=== PATIENT | female | born 1950 | race Caucasian/White ===

== ENCOUNTER 2021-01-05 23:34 | Inpatient (IN) | payer OTHER, MEDICAID, SELFPAY ==
[~2021-01-05] VITALS: Ht 152.4 cm; Wt 59.4 kg
[~2021-01-05 23:34] MED LIST: ACET-73 PO; CYCL10TA9 PO; DOCU-156 PO; HYDR-3927 PO; NAPR-690 PO; PANT40TA45 PO; POTA-88 PO; SER25 PO
--- NOTE | 2021-01-05 23:38 | NUR ---
PT BIB BLS AMBULANCE FOR BLEEDING IN COLOSTOMY BAG. PT WAS SEEN BY NURSES AT 1900 AND THEY NOTICED SHE HAD BLOOD IN HER BAG. PT ALSO HAS DISTENTION TO LEFT SIDE OF HER ABDOMEN WHERE THE BAG IS. 08/25 PAIN. A&OX2. -SOB, -CP
--- NOTE | 2021-01-05 23:40 | NUR ---
Tanmay pugh in ED - 01/06/21 at 0010 by SDEDGS CAROLYNN WILSON at bedside examining patient.
[2021-01-05 23:44] VITALS: BP_SYST 113
--- NOTE | 2021-01-06 00:10 | NUR ---
# 20 gauge angiocath placed to RAC. Use of asceptic technique. Opsite placed over site. Blood return noted. Blood for lab drawn from site. Flushed with 10 cc of normal saline. No evidence of infiltration noted. Patient tolerated well.
--- NOTE | 2021-01-06 00:46 | NUR ---
ER Dr. WILSON at bedside examining patient.
[2021-01-06] MEDS ORDERED: NACL 0.9% 1,000 ML IV ONE (01:00)
[2021-01-06 01:01] LABS: EOSINOPHILS # (AUTO) 0.2 K/uL (0.0-0.4); EOSINOPHILS % (AUTO) 4.9 % (0.0-4.0); HEMATOCRIT 22.9 % (36-48); HEMOGLOBIN 7.1 g/dL (12.0-16.0); LYMPHOCYTES # (AUTO) 1.7 K/uL (1.0-5.5); LYMPHOCYTES % (AUTO) 35.4 % (20.5-51.5); MEAN CORPUSCULAR HEMOGLOBIN 23 pg (27-31); MEAN CORPUSCULAR HGB CONC 31 % (32-36); MEAN CORPUSCULAR VOLUME 75 fL (79.0-98.0); MONOCYTES # (AUTO) 0.7 K/uL (0.0-1.0); MONOCYTES % (AUTO) 14.9 % (1.7-9.3); NEUTROPHILS # (AUTO) 2.1 K/uL (1.8-7.7); NEUTROPHILS % (AUTO) 43.8 % (40.0-70.0); PLATELET COUNT (AUTO) 174 K/uL (130-430); RED BLOOD CELL COUNT(AUTO) 3.04 MIL/uL (4.2-6.2); RED CELL DISTRIBUTION WIDTH 20.7 % (9.0-15.0); WHITE BLOOD COUNT (AUTO) 4.7 K/uL (4.8-10.8)
--- NOTE | 2021-01-06 01:06 | NUR ---
PTs COLSOTOMY TUBE CHANGED. NEW ONE PLACED AFTER MEASURING AND CUTTING ONE
[2021-01-06 01:11] LABS: INR 0.9 (0.8-1.2); PROTHROMBIN TIME 9.6 SECS (9.5-12.5)
[2021-01-06 01:18] LABS: CALCIUM 8.4 mg/dL (8.4-11.0); CREATININE 0.83 mg/dL (0.55-1.30); POTASSIUM 3.9 mmol/L (3.5-5.1)
--- NOTE | 2021-01-06 01:19 | NUR ---
Patient transported to radiology via GURNEY, accompanied by CATINA.
[2021-01-06 01:24] LABS: ALBUMIN 3.1 g/dL (3.4-4.8); TOTAL BILIRUBIN 0.3 mg/dL (0.0-1.0)
--- NOTE | 2021-01-06 02:00 | NUR ---
PT SLEEPING IN BED NOW. PTs VSS
--- NOTE | 2021-01-06 02:46 | NUR ---
Medication reconciliation completed with information provided by FACILITY. Any prior medication reconciliation on file was reviewed and corrected.
--- NOTE | 2021-01-06 02:47 | NUR ---
PT BELONGINGS LIST COMPLETE
--- NOTE | 2021-01-06 02:47 | NUR ---
PT IS DNR
--- NOTE | 2021-01-06 03:55 | NUR ---
Patient will be admitted to care of [facility]. Admitted to TELE unit. Will go to room TBD. Belongings list completed. Complete and up to date summary report printed. SBAR report to be given at bedside with opportunity for questions.
--- NOTE | 2021-01-06 03:59 | NUR ---
[facility]. Licensed nurse present. IV present no signs or symptoms of infiltration.
--- NOTE | 2021-01-06 04:18 | NUR ---
ADMISSION NOTE Received patient from ER via ana lilia, received report from Ravinder STERN. Patient admitted with diagnosis of GI Bleed. Patient oriented to hospital routine, call light, toileting and safety-patient verbalized understanding.
[2021-01-06 04:43] VITALS: BP_SYST 130
--- NOTE | 2021-01-06 04:51 | NUR ---
special procedure technologist at bedside.
[2021-01-06] MEDS ORDERED: NACL 0.9% 1,000 ML IV SCH (05:00)
--- NOTE | 2021-01-06 05:50 | NUR ---
Closing notes Pt AAOx3, VSS, no s/s distress noted. LAYA colostomy bag noted with small bloody drainage and small formed stool. Bag was changed per ER nurse. IVF started at ordered rate RAC 20G good blood return. Pt assisted with the bedpan and pt voided good amout of urine. Bed low, locked, siderails upx 3, alarm on. Call light within reach. To endorse to AM nurse.
[2021-01-06 06:47] LABS: INR 0.9 (0.8-1.2); PROTHROMBIN TIME 9.7 SECS (9.5-12.5)
[2021-01-06 06:56] LABS: BASOPHILS % (AUTO) 1.2 % (0.0-2.0); EOSINOPHILS # (AUTO) 0.2 K/uL (0.0-0.4); HEMATOCRIT 23.6 % (36-48); HEMOGLOBIN 7.2 g/dL (12.0-16.0); LYMPHOCYTES # (AUTO) 1.5 K/uL (1.0-5.5); LYMPHOCYTES % (AUTO) 36.2 % (20.5-51.5); MEAN CORPUSCULAR HEMOGLOBIN 23 pg (27-31); MEAN CORPUSCULAR HGB CONC 31 % (32-36); MEAN CORPUSCULAR VOLUME 76 fL (79.0-98.0); MONOCYTES # (AUTO) 0.6 K/uL (0.0-1.0); MONOCYTES % (AUTO) 14.1 % (1.7-9.3); NEUTROPHILS # (AUTO) 1.8 K/uL (1.8-7.7); NEUTROPHILS % (AUTO) 43.5 % (40.0-70.0); PLATELET COUNT (AUTO) 172 K/uL (130-430); RED BLOOD CELL COUNT(AUTO) 3.12 MIL/uL (4.2-6.2); RED CELL DISTRIBUTION WIDTH 20.7 % (9.0-15.0); WHITE BLOOD COUNT (AUTO) 4.2 K/uL (4.8-10.8)
[2021-01-06 07:03] LABS: ALBUMIN 3.1 g/dL (3.4-4.8); CALCIUM 8.5 mg/dL (8.4-11.0); CREATININE 0.69 mg/dL (0.55-1.30); POTASSIUM 3.8 mmol/L (3.5-5.1); TOTAL BILIRUBIN 0.2 mg/dL (0.0-1.0)
--- NOTE | 2021-01-06 07:30 | NUR ---
patient in bed, no s/s of distress, CHRISTEL abdomen colostomy changed in ER per film processing shift supervisor RN report, scant amount of blood in the colostomy bad and formed stool, order to transfuse 2units PRBCs will ensure all forms are filled out and consent is signed and will transfuse when blood is ready, rac 20g line intact patent and dressing clean dry intact, no diet yet patient has a GI bleed so keeping NPO for nowv will follow up with , a/ox4, ambulatory with walker and stand by assist, on RA, safety measures in place, bed in lowest locked position, call light within reach, will continue to monitor.
[2021-01-06 08:00] VITALS: BP_SYST 138
[2021-01-06 12:20] VITALS: BP_SYST 142
--- NOTE | 2021-01-06 13:50 | NUR ---
PATIENT 1ST UNIT OF PACKED RED BLOOD CELLS TRANSFUSION STARTED,K CONFIRMED BLOOD WITH LAB AND SECOND RN, WILL MONITOR FOR ADVERSE REACTION.
[2021-01-06 16:19] VITALS: BP_SYST 137
--- NOTE | 2021-01-06 17:50 | NUR ---
PATIENT GIVEN 1 UNIT PRBC, TOLERATED WELL, NO ADVERSE REACTIONS, NO S/S OF DISTRESS, WILL FOLLOW UP ON WHEN NEXT UNIT OF BLOOD IS READY.
--- NOTE | 2021-01-06 20:23 | NUR ---
CALLED : PT IS REQUESTING FOR FOOD , NO DIET ORDER FOR THIS PT , PT CAME WITH GI BLEED, NO GI CONSULT FOR THIS PT . CALLED AND TALKED WITH DR NIECY MD ORDERED NPO AND CHANGED IV FLUID TO D51/2 NS AT 50 CC/HR , AND GI CONSULT WITH DR BRUMFIELD .ORDER ENTERED .
[2021-01-06 20:35] VITALS: BP_SYST 132
--- NOTE | 2021-01-06 20:37 | NUR ---
Gogo [facility]OR[facility] [employer] and spoke with Dr. Barrett wells pt consult for GI bleed and pt wants to eat. Pt has LAYA colostomy with small bleeding and formed pebble stool. Per pt can have Full liquid diet and will see pt tomorrow. Will carry out order.
--- NOTE | 2021-01-06 22:25 | NUR ---
2nd unit PRBC started Pt awake, VSS. 2nd unit PRBC started with a 2nd RN witness. Will continue to monitor pt.
[2021-01-07 01:00] VITALS: BP_SYST 141
--- NOTE | 2021-01-07 01:05 | NUR ---
2nd unit PRBC completed Pt asleep, no adverse reaction noted. To monitor.
--- NOTE | 2021-01-07 02:23 | NUR ---
Consultation Paged Reason for Consultation: GI Bleed Was consult called: Y Person who was notified: Thelma Consulting Physician: Dr. Torrez (Dr. Hyde is document control clerk) Ordering Physician: Dr. Jensen
[2021-01-07] MEDS: D5/0.45 NS 1,000 ML IV SCH ×2 (02:50→16:30)
--- NOTE | 2021-01-07 06:00 | NUR ---
Closing notes Pt AAOx3, no s/s distress noted. LAYA colostomy bag with pebble like formed stool. Bag emptied. IVF infusing at ordered rate RAC 20G good blood return. Pt assisted with the bedpan and pt voided good amout of urine. Bed low, locked, siderails upx 3, alarm on. Call light within reach. To endorse to AM nurse.
[2021-01-07 08:00] VITALS: BP_SYST 135
--- NOTE | 2021-01-07 11:02 | NUR ---
Nutrition Update Omar Scale 17 noted. Pt admitted for GI bleed. Diet: full liquid BMI: 25.6 kg/m2 RD to follow per nutrition care standards.
[2021-01-07 12:00] VITALS: BP_SYST 142
[2021-01-07] MEDS ORDERED: GOLYTELY / COLYTE SOLUTION 4 LITERS PO ONE (15:45)
[2021-01-07] MEDS ORDERED: BISACODYL 5 MG TABLET.DR (DULCOLAX) PO ONE (15:45)
[2021-01-07 16:00] VITALS: BP_SYST 145
--- NOTE | 2021-01-07 16:40 | NUR ---
PATIENT STARTED ON GOLYTELY, EDUCATED ON HOW TO DRINK THE FLUID AND WILL COME IN PERIODICALLY TO REFILL PATIENTS CUP
--- NOTE | 2021-01-07 17:00 | NUR ---
SPOKE WITH PATIENT RAMYA JOSHI, EDUCATED ON PATIENT STATUS AND RECEIVED CONSENT FOR THE EGD AND COLONOSCOPY. ANSWERED ALL QUESTIONS
--- NOTE | 2021-01-07 19:30 | NUR ---
OPENING NOTE RECEIVED REPORT FROM DAY RN. PT IN BED WITH RESPIRATIONS EVEN AND UNLABORED ON RA. PT VS WNL. NO SIGNS OF DISTRESS NOTED. LEFT ABDOMEN COLOSTOMY INTACT AND DRAINING LOOSE BROWN STOOL. PT ON GOLYTLY AND ABOUT SENIOR CARE THROUGH. PT EDUCATED ON IMPORTANCE OF FINISHING DRINK. PT VERBALIZED UNDERSTANDING. PT SLIGHTLY CONFUSED ON DATE AND LOCATION. TELE MONITOR IN PLACE. BED IN LOWEST AND LOCKED POSITION. CALL LIGHT WITHIN REACH. SAFETY PRECAUTIONS IN PLACE. WILL CONTINUE TO MONITOR.
[2021-01-07 20:00] VITALS: BP_SYST 132
--- NOTE | 2021-01-08 00:11 | NUR ---
rounds pt able to drink another cup of golytely. colostomy bag emptied. brown liquid drained. small amount of residual. pt tolerating well
[2021-01-08 00:26] VITALS: BP_SYST 145
--- NOTE | 2021-01-08 03:15 | NUR ---
rounds pt able to drink another cup of golytely. colostomy bag emptied. brown liquid drained. pt tolerating well. pt educated on importance of finishing golytely. pt verbalizes understanding.
--- NOTE | 2021-01-08 05:41 | NUR ---
pt finished golytely colostomy bag emptied. liquid brown stool drained. pt tolerated well.
--- NOTE | 2021-01-08 06:33 | NUR ---
closing note patient in bed with eyes closed. respirations even and unlabored on ra. no signs of distress noted. colostomy bag emptied, with loose, liquid, light brown stool drained. LFA 22g iv intact and patent. saline locked at this time. call light within reach. safety precautions in place. all needs met. will endorse to day rn.
[2021-01-08] MEDS ORDERED: SIMETHICONE 40 MG/0.6 ML ML ONE (07:06)
[2021-01-08 08:39] LABS: EOSINOPHILS # (AUTO) 0.3 K/uL (0.0-0.4); EOSINOPHILS % (AUTO) 5.2 % (0.0-4.0); HEMOGLOBIN 11.1 g/dL (12.0-16.0); LYMPHOCYTES # (AUTO) 1.5 K/uL (1.0-5.5); LYMPHOCYTES % (AUTO) 30.2 % (20.5-51.5); MEAN CORPUSCULAR HEMOGLOBIN 23 pg (27-31); MEAN CORPUSCULAR HGB CONC 32 % (32-36); MEAN CORPUSCULAR VOLUME 72 fL (79.0-98.0); MONOCYTES # (AUTO) 0.7 K/uL (0.0-1.0); PLATELET COUNT (AUTO) 189 K/uL (130-430); RED BLOOD CELL COUNT(AUTO) 4.84 MIL/uL (4.2-6.2); WHITE BLOOD COUNT (AUTO) 4.9 K/uL (4.8-10.8)
[2021-01-08 08:43] LABS: BASOPHILS % (AUTO) 0.3 % (0.0-2.0); NEUTROPHILS # (AUTO) 2.5 K/uL (1.8-7.7); NEUTROPHILS % (AUTO) 49.3 % (40.0-70.0)
[2021-01-08 08:59] LABS: CALCIUM 8.9 mg/dL (8.4-11.0); CREATININE 0.59 mg/dL (0.55-1.30); POTASSIUM 3.7 mmol/L (3.5-5.1)
[2021-01-08] MEDS: MEPERIDINE 100 MG INJ. 100 MG/ML VIAL ONE ×2 (10:52→10:54)
[2021-01-08] MEDS: MIDAZOLAM HCL 5 MG/5 ML VIAL ONE ×4 (10:52→11:05)
[2021-01-08 11:32] VITALS: BP_SYST 133
--- NOTE | 2021-01-08 13:34 | NUR ---
DC PLANNING Order to dc back to SNF if cleared by GI. Spoke with Bozena DRIVER EDUCATION INSTRUCTOR at nsg station. Charge nurse informed Bozena cleared by GI, per Bozena DRIVER EDUCATION INSTRUCTOR pt clear to dc back to SNF today. Spoke with pt at bedside & agreeable with discharge back to [facility] today. Updated dc shutdown planner. Referral faxed to [facility].
--- NOTE | 2021-01-08 14:15 | NUR ---
Discharge Planning: DCP arranged transport with [facility] ([phone]) between 4:30-5:00pm to [facility] [phone] Rm 6A. Patient packet taken to nurse station nurse aware.
[2021-01-08 14:54] VITALS: BP_SYST 128
[2021-01-08 15:28] VITALS: BP_SYST 125
--- NOTE | 2021-01-08 18:00 | NUR ---
PATIENT DISCHARGED, AMBULANCE [facility] UNIT 20 AND TRANSPORTER BREANN, GAVE BREANN FULL REPORT AND PROVIDED DISCHARGE PACKET AND TRANSFER PACKET, DISCHARGE PACKET ALSO IN CHART, [facility], IV REMOVED, COLOSTOMY EMPTIED, STABLE FOR TRANSFER, BELONGINGS WITH PATIENT, WRIST BAND REMOVED, TRANSFERRED TO [facility], TOLERATED WELL.
== END 2021-01-08 18:05 | DRG 378 ==
LOC: SED 23:34 → STU 01-06 03:51 → SMU 01-08 12:30
PROVIDERS: ADMIT Internal Medicine; ATTEND Internal Medicine
PROC: 30233N1 Transfusion of Nonautologous Red Blood Cells into Peripheral Vein, Percutaneous Approach (ICD-10-PCS; 2021-01-06)
PROC: 0DJD8ZZ Inspection of Lower Intestinal Tract, Via Natural or Artificial Opening Endoscopic (ICD-10-PCS; 2021-01-08)
PROC: 0DB98ZX Excision of Duodenum, Via Natural or Artificial Opening Endoscopic, Diagnostic (ICD-10-PCS; principal; 2021-01-08 11:00)
PROC: 0DB78ZX Excision of Stomach, Pylorus, Via Natural or Artificial Opening Endoscopic, Diagnostic (ICD-10-PCS; 2021-01-08 11:00)
DX: K29.71 Gastritis, unspecified, with bleeding (principal); D62 Acute posthemorrhagic anemia; K94.01 Colostomy hemorrhage; K57.91 Diverticulosis of intestine, part unspecified, without perforation or abscess with bleeding; K29.81 Duodenitis with bleeding; D64.9 Anemia, unspecified; I67.1 Cerebral aneurysm, nonruptured; F17.210 Nicotine dependence, cigarettes, uncomplicated; Z20.822 Contact with and (suspected) exposure to COVID-19; I10 Essential (primary) hypertension; K21.9 Gastro-esophageal reflux disease without esophagitis; K56.41 Fecal impaction; K46.9 Unspecified abdominal hernia without obstruction or gangrene
CPT/HCPCS: 36415; 36430; 43239; 45378; 76376; 80048; 80053; 85025; 85610-TC; 85730-TC; 86886; 86900; 86901; 86920; 87081; 88305; 88312; 88313; 96360; 96361; 99285; G0378; J2175; J2250; P9021

== ENCOUNTER 2021-01-16 22:49 | Emergency (ER) | payer OTHER, MEDICAID ==
[~2021-01-16] VITALS: Ht 165.1 cm; Wt 61.2 kg
[2021-01-16 22:53] VITALS: BP_SYST 141
--- NOTE | 2021-01-16 22:53 | NUR ---
Placed in room 04 . Placed on threat monitoring analyst, blood pressure machine and pulse oximeter. To gown for exam. Side rails up. Report given to JARRED PORTILLO
--- NOTE | 2021-01-16 22:53 | NUR ---
Pt report received. Pt from [facility] r/t GI bleed and generalized abdominal pain 08/25. Pt states that while she was walking to the bathroom, she became light headed, but did not fall. She has a colostomy in place with ~10 mL dark red blood noted to bag. Pt states that she bled from her colostomy site and "filled up the bag." Pt denies c/o C/P, SOB, Nausea, or light headedness at this time. VSS.
[2021-01-16] MEDS ORDERED: NACL 0.9% 1,000 ML IV ONE ×2 (23:15→23:45)
--- NOTE | 2021-01-16 23:15 | NUR ---
# 20 gauge angiocath placed to LAC. Use of asceptic technique. Opsite placed over site. Blood return noted. Blood for lab drawn from site. Flushed with 10 cc of normal saline. No evidence of infiltration noted. Patient tolerated well.
--- NOTE | 2021-01-16 23:33 | NUR ---
ER at bedside examining patient.
[2021-01-16 23:45] LABS: BASOPHILS # (AUTO) 0.1 K/uL (0.0-0.2); BASOPHILS % (AUTO) 1.3 % (0.0-2.0); EOSINOPHILS # (AUTO) 0.3 K/uL (0.0-0.4); EOSINOPHILS % (AUTO) 4.4 % (0.0-4.0); HEMATOCRIT 30.6 % (36-48); HEMOGLOBIN 9.7 g/dL (12.0-16.0); LYMPHOCYTES # (AUTO) 2.2 K/uL (1.0-5.5); LYMPHOCYTES % (AUTO) 36.3 % (20.5-51.5); MEAN CORPUSCULAR HEMOGLOBIN 24 pg (27-31); MEAN CORPUSCULAR HGB CONC 32 % (32-36); MEAN CORPUSCULAR VOLUME 74 fL (79.0-98.0); MONOCYTES # (AUTO) 0.8 K/uL (0.0-1.0); MONOCYTES % (AUTO) 12.6 % (1.7-9.3); NEUTROPHILS # (AUTO) 2.7 K/uL (1.8-7.7); NEUTROPHILS % (AUTO) 45.4 % (40.0-70.0); PLATELET COUNT (AUTO) 128 K/uL (130-430); RED BLOOD CELL COUNT(AUTO) 4.11 MIL/uL (4.2-6.2)
[2021-01-16] MEDS ORDERED: PANTOPRAZOLE SODIUM 40 MG/VIAL (PROTONIX) IVP ONE (23:45)
[2021-01-16] MEDS ORDERED: PANTOPRAZOLE SODIUM 40 MG/VIAL (PROTONIX) ONE (23:49)
[2021-01-16 23:55] LABS: CALCIUM 9.3 mg/dL (8.4-11.0); CREATININE 0.84 mg/dL (0.55-1.30); POTASSIUM 3.9 mmol/L (3.5-5.1)
[2021-01-16 23:59] LABS: INR 0.9 (0.8-1.2); PROTHROMBIN TIME 9.9 SECS (9.5-12.5)
[2021-01-17 00:01] LABS: ALBUMIN 3.5 g/dL (3.4-4.8); TOTAL BILIRUBIN 0.3 mg/dL (0.0-1.0)
[2021-01-17] MEDS: PANTOPRAZOLE SODIUM 40 MG in NS 50 ML IV SCH ×2 (00:02→04:58)
--- NOTE | 2021-01-17 01:10 | NUR ---
Warm blankets x 2 provided. Protonix Drip continues to infuse at 10 mL/hr to patent PIV LAC with no s/s infiltration. VSS, NAD. No further bleeding noted to colostomy bag.
--- NOTE | 2021-01-17 01:25 | NUR ---
Pt placed on bed ramos to urinate.
--- NOTE | 2021-01-17 01:35 | NUR ---
Pt removed from bedpan. No needs verbalized at this time. VSS, NAD.
[2021-01-17] MEDS ORDERED: SILVER NITRATE APPLICATOR 1 STICK STICK..EA. TP ONE ×2 (01:40→03:43)
--- NOTE | 2021-01-17 01:45 | NUR ---
Colostomy bag removed and to be changed per Dr. Andrade's orders. Upon removing old bag, blood noted to be oozing from the inferolateral aspect of the cutaneous mucosal junction of stoma. Dr. Andrade called to bedside and he successfully cauterizes the site of bleeding with 2 sticks of silver nitrate. Pt tolerated procedure well. Will leave site uncovered and reassess for further bleeding prior to placing new bag to stoma.
[2021-01-17] MEDS ORDERED: NACL 0.9% 1,000 ML IV ONE (02:30)
[2021-01-17] MEDS ORDERED: NS 500 ML IV ONE (03:00)
--- NOTE | 2021-01-17 03:10 | NUR ---
No further bleeding noted to stoma site. New colostomy bag applied.
--- NOTE | 2021-01-17 04:00 | NUR ---
Pt resting quietly, VSS, NAD.
--- NOTE | 2021-01-17 04:08 | NUR ---
Tanmay pugh in EDM - 01/17/21 at 0518 by KELSEY Pt experienced tonic-clonic seizure lasting approximately [address] Andrade at bedside. Pt given Ativan 1 mg IVP per verbal order.
--- NOTE | 2021-01-17 05:08 | NUR ---
Pt placed on bed ramos to urinate.
--- NOTE | 2021-01-17 05:10 | NUR ---
Pt removed from bedpan. No needs verbalized at this time. VSS, NAD.
--- NOTE | 2021-01-17 06:00 | NUR ---
Pt resting quietly, even and non-labored respirations, VSS, NAD.
--- NOTE | 2021-01-17 07:05 | NUR ---
Pt report given to JARRED Fowler.
--- NOTE | 2021-01-17 07:21 | NUR ---
Contacted number provided for [facility] ([phone]) to give pt report. No response.
--- NOTE | 2021-01-17 08:00 | NUR ---
assisted pt. on bedpan, voided, discussed discharge and transfer back to [facility]
--- NOTE | 2021-01-17 08:02 | NUR ---
Patient given written and verbal discharge instructions and verbalizes understanding. ER discussed with patient the results and treatment provided. Patient in stable condition. ID arm band removed. IV catheter removed intact and dressing applied, no active bleeding. Patient educated on pain management and to follow up with PMD. Pain Scale 3. Opportunity for questions provided and answered. Discharge instruction pack given to EMS for facility.
[2021-01-17 08:04] VITALS: BP_SYST 121
== END 2021-01-17 08:02 | disposition home or self-care (01) ==
LOC: SED 22:49
DX: K91.840 Postprocedural hemorrhage of a digestive system organ or structure following a digestive system procedure (principal); I10 Essential (primary) hypertension; Z79.899 Other long term (current) drug therapy
CPT/HCPCS: 36415; 71045; 80053; 85025; 85610; 85730; 86886; 86900; 86901; 93005; 96365; 96366; 96376; 99285; C9113

== ENCOUNTER 2021-06-28 02:01 | Emergency (ER) | payer OTHER, MEDICAID ==
[~2021-06-28] VITALS: Ht 154.9 cm; Wt 54.4 kg
[~2021-06-28 02:01] MED LIST changes: +CYCL10TA25 PO; -CYCL10TA9 PO
[2021-06-28 02:04] VITALS: BP_SYST 118
--- NOTE | 2021-06-28 02:04 | NUR ---
Patient to [facility] for evaluation. Side rails up.
--- NOTE | 2021-06-28 02:05 | NUR ---
PATIENT BROUGHT IN BLS FROM [facility] FOR COLOSTOMY CARE. PATIENT IS AOX3. REPORTS PAIN AND SWELLING AT THIS THE SITE.
--- NOTE | 2021-06-28 02:06 | NUR ---
ER at bedside examining patient.
[2021-06-28] MEDS ORDERED: HYDROcodone/ACETAMIN 7.5-325 MG TAB PO ONE (02:15)
--- NOTE | 2021-06-28 02:31 | NUR ---
0220 COLOSTOMY CARE DONE, KEPT CLEAN AND DRY,C/O PAIN 06/25 MEDICATED FOR TAB NORCO,AWAITING TO GO BACK TO FACILITY
--- NOTE | 2021-06-28 02:44 | NUR ---
Patient given written and verbal discharge instructions and verbalizes understanding. CAROLYNN OSMAN MD discussed with patient the results and treatment provided. Patient in stable condition. Patient educated on pain management and to follow up with PMD. Pain Scale [2]. Opportunity for questions provided and answered. Medication side effect fact sheet provided.
== END 2021-06-28 02:44 ==
LOC: SED 02:01
DX: Z43.3 Encounter for attention to colostomy (principal); I10 Essential (primary) hypertension; Z90.49 Acquired absence of other specified parts of digestive tract; F10.20 Alcohol dependence, uncomplicated
CPT/HCPCS: 99283

== ENCOUNTER 2022-03-03 04:13 | Inpatient (IN) | payer OTHER, MEDICAID ==
[~2022-03-03] VITALS: Ht 165.1 cm; Wt 66.7 kg
[2022-03-03 04:17] VITALS: BP_SYST 118
--- NOTE | 2022-03-03 04:18 | NUR ---
Placed in room 2 . Placed on telemetry monitor, blood pressure machine and pulse oximeter. To gown for exam. Side rails up. Report given to Donnie STERN (reg).
--- NOTE | 2022-03-03 04:19 | NUR ---
FROM [facility] FOR SOB, A/OX4 NO STROKE SYSTEMS, VSS
[2022-03-03] MEDS ORDERED: ESCI10TA PO (04:47)
[2022-03-03] MEDS ORDERED: ONDA-8 TL (04:47)
[2022-03-03] MEDS ORDERED: VITD400 PO (04:47)
[2022-03-03] MEDS ORDERED: MULT-1089 PO (04:47)
[2022-03-03] MEDS ORDERED: LACO100T2 PO (04:47)
[2022-03-03] MEDS ORDERED: LACT10SO6 PO (04:47)
[2022-03-03] MEDS ORDERED: SIME80TA15 PO (04:47)
--- NOTE | 2022-03-03 04:47 | NUR ---
ER at bedside examining patient.
--- NOTE | 2022-03-03 04:47 | NUR ---
Medication reconciliation completed with information provided by [facility]. Any prior medication reconciliation on file was reviewed and corrected.
[2022-03-03 05:08] LABS: ANION GAP 8 (5-15); CALCIUM 9.1 mg/dL (8.4-11.0); CHLORIDE 106 mmol/L (98-107); CREATININE 0.86 mg/dL (0.55-1.30); GLUCOSE 136 mg/dL (70-99); UREA NITROGEN, BLOOD 21 mg/dL (8-21)
[2022-03-03 05:09] LABS: BASOPHILS % (AUTO) 0.7 % (0.0-2.0); EOSINOPHILS # (AUTO) 0.2 K/uL (0.0-0.4); EOSINOPHILS % (AUTO) 2.7 % (0.0-4.0); HEMOGLOBIN 10.7 g/dL (12.0-16.0); LYMPHOCYTES # (AUTO) 1.8 K/uL (1.0-5.5); LYMPHOCYTES % (AUTO) 28.5 % (20.5-51.5); MEAN CORPUSCULAR HEMOGLOBIN 29 pg (27-31); MEAN CORPUSCULAR HGB CONC 33 % (32-36); MEAN CORPUSCULAR VOLUME 89 fL (79.0-98.0); MONOCYTES # (AUTO) 0.7 K/uL (0.0-1.0); MONOCYTES % (AUTO) 11.3 % (1.7-9.3); NEUTROPHILS # (AUTO) 3.6 K/uL (1.8-7.7); NEUTROPHILS % (AUTO) 56.8 % (40.0-70.0); PLATELET COUNT (AUTO) 104 K/uL (130-430); RED BLOOD CELL COUNT(AUTO) 3.73 MIL/uL (4.2-6.2); RED CELL DISTRIBUTION WIDTH 15.2 % (9.0-15.0); WHITE BLOOD COUNT (AUTO) 6.4 K/uL (4.8-10.8)
[2022-03-03 05:11] LABS: GFR AFRICAN AMERICAN 84 mL/min (>90)
[2022-03-03 05:15] LABS: ALANINE AMINOTRANSFERASE 26 U/L (12-78); ALBUMIN 3.4 g/dL (3.4-4.8); ASPARTATE AMINOTRANSFERASE 25 U/L (10-37); TOTAL BILIRUBIN 0.4 mg/dL (0.0-1.0)
--- NOTE | 2022-03-03 05:18 | NUR ---
COVID, MRSA, FLU SWABBED AND SENT TO LAB
[2022-03-03] MEDS ORDERED: LACTULOSE 20 GM/30 ML UDC PO ONE (06:15)
[2022-03-03 06:16] LABS: ACETAMINOPHEN < 1 ug/mL (1-30); ALCOHOL, BLOOD < 3 mg/dL (<10)
--- NOTE | 2022-03-03 06:20 | NUR ---
Admit bed requested Patient will be admitted to care of . Admitted to TELE unit. Diagnosis HEPATIC ENCEPHALOPATHY Inpatient (Yes or No) Y Observation (Yes or No) N Orientation concerns or request close to nursing station (Yes or No) N Covid Status NEGATIVE On vent or bipap N Isolation requirements N Needs a sitter N From Home (Yes or if No enter name of facility) [facility] Requires Dialysis (Yes or No) N Med Rec Completed (Yes of No) Y
--- NOTE | 2022-03-03 07:13 | NUR ---
ROBBI TO ARTHUR(RN)
[2022-03-03 07:37] LABS: BASOPHILS % (AUTO) 0.8 % (0.0-2.0); EOSINOPHILS # (AUTO) 0.1 K/uL (0.0-0.4); EOSINOPHILS % (AUTO) 2.9 % (0.0-4.0); HEMATOCRIT 34.1 % (36-48); HEMOGLOBIN 11.1 g/dL (12.0-16.0); LYMPHOCYTES # (AUTO) 1.6 K/uL (1.0-5.5); MEAN CORPUSCULAR HEMOGLOBIN 29 pg (27-31); MEAN CORPUSCULAR HGB CONC 33 % (32-36); MEAN CORPUSCULAR VOLUME 89 fL (79.0-98.0); MONOCYTES # (AUTO) 0.6 K/uL (0.0-1.0); MONOCYTES % (AUTO) 11.7 % (1.7-9.3); NEUTROPHILS # (AUTO) 2.7 K/uL (1.8-7.7); NEUTROPHILS % (AUTO) 53.6 % (40.0-70.0); PLATELET COUNT (AUTO) 104 K/uL (130-430); RED BLOOD CELL COUNT(AUTO) 3.84 MIL/uL (4.2-6.2); RED CELL DISTRIBUTION WIDTH 15.1 % (9.0-15.0); WHITE BLOOD COUNT (AUTO) 5.1 K/uL (4.8-10.8)
[2022-03-03 07:49] LABS: CALCIUM 8.9 mg/dL (8.4-11.0); CREATININE 0.74 mg/dL (0.55-1.30)
[2022-03-03 07:54] LABS: ALBUMIN 3.3 g/dL (3.4-4.8); TOTAL BILIRUBIN 0.4 mg/dL (0.0-1.0)
[2022-03-03] MEDS ORDERED: SODIUM POLYSTYRENE SULFONATE 15 GM/60 ML UDBTL PO SCH (09:00)
--- NOTE | 2022-03-03 09:50 | NUR ---
Patient up to restroom with 1 assit pt a bit unsteady. Patient unable to urinate no bm
[2022-03-03] MEDS: D5/0.45 NS 1,000 ML IV SCH ×2 (10:04→22:36)
[2022-03-03] MEDS ORDERED: ONDANSETRON 4 MG ODT TAB TL PRN (12:15)
--- NOTE | 2022-03-03 12:15 | NUR ---
admitted to floor report was endorsed by er nurse.patient is awake and alert with episodes of confusion per er nurse.vitals are stable. patient educated television tube inspector light for assistance.call light is with her.no other needs at this time.
--- NOTE | 2022-03-03 12:21 | NUR ---
patient transported to 113B tele. report given at bedside to shanda STERN
[2022-03-03 12:23] VITALS: BP_SYST 135
[2022-03-03] MEDS: LACTULOSE 20 GM/30 ML UDC PO SCH ×2 (13:34→18:06)
[2022-03-03] MEDS: CYCLOBENZAPRINE HCL 10 MG TABLET (FLEXERIL) PO SCH ×2 (14:29→22:35)
--- NOTE | 2022-03-03 14:33 | NUR ---
medication given per order.patient is confused does not know where she is. Patient reoriented but is still confused. patient is close to nurses station. patient has no other needs at this time.
--- NOTE | 2022-03-03 14:44 | NUR ---
CONSULTATION: REASON FOR CONSULT: HEPATIC ENCEPHALOPATHY CONSULTING PHYSICIAN: TIFFANY MITCHELL ORDERED BY: NIECY SPOKE WITH GIVOANNI [phone]
--- NOTE | 2022-03-03 15:00 | NUR ---
CONSULTATION: REASON FOR CONSULT: HEPATIC ENCEPHALOPATHY CONSULTING PHYSICIAN: BRISSA ORDERED BY: NIECY SPOKE WITH DR BORJAS WHO IS STRIP STAMP STRAIGHTENER AND IS AWARE OF THE CONSULT
[2022-03-03 16:00] VITALS: BP_SYST 125
[2022-03-03] MEDS ORDERED: RIFAXIMIN 550 MG TABLET PO ONE (17:00)
--- NOTE | 2022-03-03 18:11 | NUR ---
rn closing note Patient is awake and alert walked to bathroom and back to bed.patient's colostomy emptied.patient educated environmental management specialist light,calllight is with her. Patient has no other needs at this time.
[2022-03-03 20:00] VITALS: BP_SYST 119
--- NOTE | 2022-03-03 20:15 | NUR ---
RECEIVED PT LYING IN BED, NO DISTRESS NOTED, C/O MILD ABD DISCOMFORT. AAOX1, O2 SAT 96% ON RA. SALINE LOCK TO LT HAND SITE CDI. EMPTIED ILEOSTOMY BAG. BED IN LOW POSITION, BED ALARM ON.
[2022-03-03] MEDS: RIFAXIMIN 550 MG TABLET PO SCH (20:43)
[2022-03-03] MEDS: LACOSAMIDE 100 MG TABLET PO SCH (21:00)
[2022-03-04] MEDS: LACTULOSE 20 GM/30 ML UDC PO SCH ×4 (00:09→17:44)
[2022-03-04 00:36] VITALS: BP_SYST 126
[2022-03-04] MEDS: CYCLOBENZAPRINE HCL 10 MG TABLET (FLEXERIL) PO SCH ×3 (05:49→21:50)
[2022-03-04 06:16] LABS: BASOPHILS % (AUTO) 0.6 % (0.0-2.0); EOSINOPHILS # (AUTO) 0.1 K/uL (0.0-0.4); EOSINOPHILS % (AUTO) 2.3 % (0.0-4.0); HEMATOCRIT 35.3 % (36-48); HEMOGLOBIN 11.6 g/dL (12.0-16.0); LYMPHOCYTES # (AUTO) 1.3 K/uL (1.0-5.5); LYMPHOCYTES % (AUTO) 25.3 % (20.5-51.5); MEAN CORPUSCULAR HEMOGLOBIN 29 pg (27-31); MEAN CORPUSCULAR HGB CONC 33 % (32-36); MEAN CORPUSCULAR VOLUME 89 fL (79.0-98.0); MONOCYTES # (AUTO) 0.6 K/uL (0.0-1.0); MONOCYTES % (AUTO) 10.5 % (1.7-9.3); NEUTROPHILS # (AUTO) 3.2 K/uL (1.8-7.7); NEUTROPHILS % (AUTO) 61.3 % (40.0-70.0); PLATELET COUNT (AUTO) 112 K/uL (130-430); RED BLOOD CELL COUNT(AUTO) 3.96 MIL/uL (4.2-6.2); WHITE BLOOD COUNT (AUTO) 5.3 K/uL (4.8-10.8)
[2022-03-04 06:25] LABS: INR 1.1 (0.8-1.2); PROTHROMBIN TIME 10.8 SECS (9.5-12.5)
[2022-03-04 06:49] LABS: ALBUMIN 3.3 g/dL (3.4-4.8); CALCIUM 8.7 mg/dL (8.4-11.0); CREATININE 0.8 mg/dL (0.55-1.30); TOTAL BILIRUBIN 0.5 mg/dL (0.0-1.0)
--- NOTE | 2022-03-04 06:57 | NUR ---
PT IS C/O RILEY, NO PAIN MEDICATION ORDER. LEFT MESSAGE WITH EXCHANGE, SPOKE TO [place]. Addendum: 03/04/22 at 5518 by [facility] Kenneth Velasco RN RN IN ADDITION TO REQUESTING PAIN MEDICATION, ALSO LEFT MESSAGE REGARDING DISTENDED ABD.
[2022-03-04] MEDS: LACOSAMIDE 100 MG TABLET PO SCH ×2 (08:20→21:49)
[2022-03-04] MEDS: MULTIVITAMINS TAB 1 TABLET PO SCH (08:20)
[2022-03-04] MEDS: PANTOPRAZOLE SODIUM 40 MG TAB PO SCH (08:20)
[2022-03-04] MEDS: RIFAXIMIN 550 MG TABLET PO SCH ×2 (08:25→21:50)
[2022-03-04] MEDS ORDERED: ESCITALOPRAM OXALATE 10 MG TABLET PO SCH (09:00)
[2022-03-04] MEDS: D5/0.45 NS 1,000 ML IV SCH (11:16)
[2022-03-04 12:55] VITALS: BP_SYST 121
[2022-03-04 16:12] VITALS: BP_SYST 124
--- NOTE | 2022-03-04 19:17 | NUR ---
P.T. NOTES P.T. EVAL COMPLETED; REFER TO EVAL FOR DETAILS.
[2022-03-04] MEDS ORDERED: MORPHINE 2 MG/ML INJ. SYRINGE IVP PRN (19:30)
[2022-03-04 20:12] VITALS: BP_SYST 139
[2022-03-04 20:17] VITALS: BP_SYST 139
[2022-03-05] VITALS: BP_SYST 127
[2022-03-05] MEDS: LACTULOSE 20 GM/30 ML UDC PO SCH ×4 (00:54→17:02)
[2022-03-05] MEDS: D5/0.45 NS 1,000 ML IV SCH ×2 (00:54→11:42)
[2022-03-05] MEDS: CYCLOBENZAPRINE HCL 10 MG TABLET (FLEXERIL) PO SCH ×3 (05:40→22:18)
[2022-03-05 07:01] LABS: BASOPHILS % (AUTO) 0.6 % (0.0-2.0); EOSINOPHILS # (AUTO) 0.2 K/uL (0.0-0.4); EOSINOPHILS % (AUTO) 2.7 % (0.0-4.0); HEMATOCRIT 36.3 % (36-48); HEMOGLOBIN 11.9 g/dL (12.0-16.0); LYMPHOCYTES # (AUTO) 1.5 K/uL (1.0-5.5); LYMPHOCYTES % (AUTO) 21.3 % (20.5-51.5); MEAN CORPUSCULAR HEMOGLOBIN 29 pg (27-31); MEAN CORPUSCULAR HGB CONC 33 % (32-36); MEAN CORPUSCULAR VOLUME 90 fL (79.0-98.0); MONOCYTES # (AUTO) 0.7 K/uL (0.0-1.0); MONOCYTES % (AUTO) 10.9 % (1.7-9.3); NEUTROPHILS # (AUTO) 4.4 K/uL (1.8-7.7); NEUTROPHILS % (AUTO) 64.5 % (40.0-70.0); PLATELET COUNT (AUTO) 101 K/uL (130-430); RED BLOOD CELL COUNT(AUTO) 4.05 MIL/uL (4.2-6.2); RED CELL DISTRIBUTION WIDTH 15.3 % (9.0-15.0); WHITE BLOOD COUNT (AUTO) 6.8 K/uL (4.8-10.8)
[2022-03-05 08:00] VITALS: BP_SYST 100
[2022-03-05 08:37] LABS: CALCIUM 8.9 mg/dL (8.4-11.0); CREATININE 0.63 mg/dL (0.55-1.30)
[2022-03-05] MEDS: LACOSAMIDE 100 MG TABLET PO SCH ×2 (10:00→22:19)
[2022-03-05] MEDS: MULTIVITAMINS TAB 1 TABLET PO SCH (10:00)
[2022-03-05] MEDS: PANTOPRAZOLE SODIUM 40 MG TAB PO SCH (10:00)
[2022-03-05] MEDS: RIFAXIMIN 550 MG TABLET PO SCH ×2 (10:00→22:18)
[2022-03-05] MEDS ORDERED: RIFA550T5 PO (12:04)
[2022-03-05 12:52] VITALS: BP_SYST 130
--- NOTE | 2022-03-05 15:14 | NUR ---
BATOOL HADDAD ASKED ME TO INFORM JARRED MAJOR THAT PT IS TRANSFERING TO [facility] AT 1800 TODAY. JARRED MAJOR NOTIFIED.
[2022-03-05] MEDS ORDERED: POTASSIUM CHLORIDE 20 MEQ TAB.PRT.SR PO ONE (16:45)
[2022-03-05 16:48] VITALS: BP_SYST 115
[2022-03-05 18:14] VITALS: BP_SYST 115
--- NOTE | 2022-03-05 19:56 | NUR ---
Follow call made to Medic [facility], spoke to Sonali, she said the crew is coming late at 2129.
[2022-03-05 20:00] VITALS: BP_SYST 133
--- NOTE | 2022-03-05 21:39 | NUR ---
Follow up call made again to Medic [facility], spoke to Sonali, she said the crew will be here in 45 minutes. ETA will be 4714
--- NOTE | 2022-03-05 23:00 | NUR ---
D/C Patient Patient in stable condition, ID band removed. IV catheter removed, intact and dressing applied, no active bleeding. All belongings sent with patient.
--- NOTE | 2022-03-06 07:38 | NUR ---
PHYSICAL THERAPY CO-SIGN The Physical Therapy Progress Notes documented by Rigging Engineer have been reviewed. Reviewed/Co-Signed by: Jose Alberto Cesar Documentation Done by: MABLE CHAKRABORTY PTA Addendum: 03/06/22 at 0738 by Jose Alberto Cesar PT Amended: Links added.
== END 2022-03-05 23:06 | DRG 441 ==
LOC: SED 04:13 → STU 06:12
PROVIDERS: ADMIT Internal Medicine; ATTEND Internal Medicine
DX: K76.82 Hepatic encephalopathy (principal); G92.8 Other toxic encephalopathy; K72.00 Acute and subacute hepatic failure without coma; K74.60 Unspecified cirrhosis of liver; K21.9 Gastro-esophageal reflux disease without esophagitis; D69.6 Thrombocytopenia, unspecified; G40.909 Epilepsy, unspecified, not intractable, without status epilepticus; F32.9 Major depressive disorder, single episode, unspecified; Y90.9 Presence of alcohol in blood, level not specified; D64.9 Anemia, unspecified; F10.20 Alcohol dependence, uncomplicated; Z20.822 Contact with and (suspected) exposure to COVID-19; G89.29 Other chronic pain; K43.9 Ventral hernia without obstruction or gangrene; Z93.3 Colostomy status; Z87.891 Personal history of nicotine dependence
CPT/HCPCS: 36415; 70450-TC; 71045; 76376; 76700-TC; 80048; 80053; 82105; 82140; 83605; 83690; 84484; 85025; 85610-TC; 87040; 87081; 93005; 96360; 97110-GP; 97112-GP; 97116-GP; 97530-GP; 99285; G0378; G0480; G0481; G0482; J2270

== ENCOUNTER 2022-04-27 16:56 | Inpatient (IN) | payer OTHER, MEDICAID ==
[~2022-04-27] VITALS: Ht 152.4 cm; Wt 64.0 kg
[~2022-04-27 16:56] MED LIST changes: +ESCI10TA PO; +LACO100T2 PO; +LACT10SO6 PO; +MULT-1089 PO; -NAPR-690 PO; +ONDA-8 TL; +RIFA550T5 PO; -SER25 PO; +SIME80TA15 PO; +VITD400 PO
[2022-04-27 16:58] VITALS: BP_SYST 117
--- NOTE | 2022-04-27 17:00 | NUR ---
Placed in room 04 . Placed on city route driver, blood pressure machine and pulse oximeter. To gown for exam. Side rails up. Report given to JARRED LIMON.
[2022-04-27] MEDS ORDERED: METF-379 PO (17:20)
--- NOTE | 2022-04-27 17:20 | NUR ---
Medication reconciliation completed with information provided by [facility]. Any prior medication reconciliation on file was reviewed and corrected.
--- NOTE | 2022-04-27 17:34 | NUR ---
CT SCAN FOR AB/PELVIS COMPLETED.
--- NOTE | 2022-04-27 17:35 | NUR ---
BLOOD OBTAINED AND TAKEN TO LAB.
--- NOTE | 2022-04-27 17:42 | NUR ---
MORPHINE 2MG IVP GIVEN FOR AB PAIN 08/25.
[2022-04-27] MEDS ORDERED: MORPHINE 2 MG/ML INJ. SYRINGE IVP ONE (17:45)
--- NOTE | 2022-04-27 17:50 | NUR ---
# 22 gauge angiocath placed to RFA. Use of asceptic technique. Opsite placed over site. Blood return noted. Flushed with 10 cc of normal saline. No evidence of infiltration noted. Patient tolerated well.
[2022-04-27 17:54] LABS: BILIRUBIN,URINE NEGATIVE (NEGATIVE); BLOOD, URINE NEGATIVE (NEGATIVE); CLARITY/URINE CLEAR (CLEAR); COLOR,URINE YELLOW (YELLOW); GLUCOSE,URINE NEGATIVE (NEGATIVE); KETONES,URINE TRACE (NEGATIVE); LEUKOCYTE ESTERASE ,URINE TRACE (NEGATIVE); NITRITE, URINE POSITIVE (NEGATIVE); PH,URINE 5.5 (5.0-8.0); PROTEIN URINE NEGATIVE (NEGATIVE); UROBILINOGEN,URINE 0.2 (0.2-1.0)
[2022-04-27 17:55] LABS: BASOPHILS % (AUTO) 0.6 % (0.0-2.0); EOSINOPHILS # (AUTO) 0.2 K/uL (0.0-0.4); EOSINOPHILS % (AUTO) 2.7 % (0.0-4.0); HEMATOCRIT 34.9 % (36-48); HEMOGLOBIN 11.4 g/dL (12.0-16.0); LYMPHOCYTES # (AUTO) 1.6 K/uL (1.0-5.5); LYMPHOCYTES % (AUTO) 27.2 % (20.5-51.5); MEAN CORPUSCULAR HEMOGLOBIN 29 pg (27-31); MEAN CORPUSCULAR HGB CONC 33 % (32-36); MEAN CORPUSCULAR VOLUME 89 fL (79.0-98.0); MONOCYTES # (AUTO) 0.8 K/uL (0.0-1.0); NEUTROPHILS # (AUTO) 3.3 K/uL (1.8-7.7); NEUTROPHILS % (AUTO) 56.5 % (40.0-70.0); PLATELET COUNT (AUTO) 106 K/uL (130-430); RED BLOOD CELL COUNT(AUTO) 3.92 MIL/uL (4.2-6.2); WHITE BLOOD COUNT (AUTO) 5.8 K/uL (4.8-10.8)
[2022-04-27 18:00] LABS: BACTERIA,URINE MANY /HPF (None Seen); MUCUS,URINE 1+ /LPF (None Seen); RBC,URINE 0-3 /HPF (0-3)
[2022-04-27 18:09] LABS: CALCIUM 8.9 mg/dL (8.4-11.0); CREATININE 0.72 mg/dL (0.55-1.30)
[2022-04-27 18:13] LABS: ALBUMIN 3.4 g/dL (3.4-4.8); TOTAL BILIRUBIN 0.3 mg/dL (0.0-1.0)
[2022-04-27] MEDS ORDERED: cefTRIAXone 1 GM in D5W 50 ML IV ONE (18:45)
--- NOTE | 2022-04-27 19:18 | NUR ---
PT ENDORSED TO JARRED MENDEZ. ALL QUESTIONS AND CONCERNS ADDRESSED.
--- NOTE | 2022-04-27 19:44 | NUR ---
Admit bed requested Patient will be admitted to care of . Admitted to MS unit. Diagnosis UTI,ABD PAIN Inpatient (Yes or No) Y Observation (Yes or No) N Orientation concerns or request close to nursing station (Yes or No) N Covid Status PENDING On vent or bipap N Isolation requirements N Needs a sitter N From Home (Yes or if No enter name of facility) N [facility] Requires Dialysis (Yes or No) Y Med Rec Completed (Yes of No)
--- NOTE | 2022-04-28 00:28 | NUR ---
Patient will be admitted to care of dr sims. Admitted to med surge unit. Will go to room 104b. Belongings list completed. Complete and up to date summary report printed. SBAR report to be given at bedside to nurse nickerson with opportunity for questions.
[2022-04-28 00:45] VITALS: BP_SYST 115
[2022-04-28 00:50] VITALS: BP_SYST 115
--- NOTE | 2022-04-28 03:21 | NUR ---
CONSULTATION PAGED/CALLED Reason for Consultation: UTI Person Who was Notified: [place] Consulting Physician: Bruna MITCHELL Resizer Operator Specialty: Ordering Physician: NIECY
--- NOTE | 2022-04-28 03:22 | NUR ---
CONSULTATION PAGED/CALLED Reason for Consultation: ABD PAIN Person Who was Notified: [place] Consulting Physician: TASNEEM BRUMFIELD IS TEACHER THEATER ARTS Sterile Preparation Technician Specialty: Ordering Physician: NIECY
[2022-04-28 06:56] LABS: BASOPHILS % (AUTO) 0.6 % (0.0-2.0); EOSINOPHILS # (AUTO) 0.2 K/uL (0.0-0.4); EOSINOPHILS % (AUTO) 3.9 % (0.0-4.0); HEMATOCRIT 36.7 % (36-48); HEMOGLOBIN 11.9 g/dL (12.0-16.0); LYMPHOCYTES # (AUTO) 1.3 K/uL (1.0-5.5); LYMPHOCYTES % (AUTO) 24.9 % (20.5-51.5); MEAN CORPUSCULAR HEMOGLOBIN 29 pg (27-31); MEAN CORPUSCULAR HGB CONC 32 % (32-36); MEAN CORPUSCULAR VOLUME 89 fL (79.0-98.0); MONOCYTES # (AUTO) 0.7 K/uL (0.0-1.0); MONOCYTES % (AUTO) 12.9 % (1.7-9.3); NEUTROPHILS # (AUTO) 2.9 K/uL (1.8-7.7); NEUTROPHILS % (AUTO) 57.7 % (40.0-70.0); PLATELET COUNT (AUTO) 98 K/uL (130-430); RED BLOOD CELL COUNT(AUTO) 4.12 MIL/uL (4.2-6.2); RED CELL DISTRIBUTION WIDTH 15.8 % (9.0-15.0); WHITE BLOOD COUNT (AUTO) 5.1 K/uL (4.8-10.8)
[2022-04-28 07:39] LABS: ALBUMIN 3.1 g/dL (3.4-4.8); CALCIUM 8.6 mg/dL (8.4-11.0); CREATININE 0.63 mg/dL (0.55-1.30); TOTAL BILIRUBIN 0.4 mg/dL (0.0-1.0)
[2022-04-28 08:00] VITALS: BP_SYST 118
[2022-04-28] MEDS: LACTULOSE 20 GM/30 ML UDC PO SCH ×2 (10:23→21:05)
[2022-04-28] MEDS: LEVOFLOXACIN 250 MG/D5W 50 ML IV SCH (10:26)
[2022-04-28] MEDS: RIFAXIMIN 550 MG TABLET PO SCH ×2 (10:27→21:05)
[2022-04-28 11:24] VITALS: BP_SYST 124
--- NOTE | 2022-04-28 14:20 | NUR ---
CM spoke with pt son Jackson Mcginnis [phone] regarding discharge planning. Jacksno is agreeable for patient to go back to [facility]. Jackson state that the previous plan was for his mom to go home with her sister [facility] with ; however, Jackson states that that sister is not doing well right now and the family is needing to figure out who she will go live with now.
[2022-04-28 15:13] VITALS: BP_SYST 123
[2022-04-28] MEDS: CYCLOBENZAPRINE HCL 10 MG TABLET (FLEXERIL) PO SCH ×2 (15:43→22:59)
[2022-04-28] MEDS: SIMETHICONE 80 MG TAB.CHEW PO SCH ×2 (15:44→22:59)
--- NOTE | 2022-04-28 17:25 | NUR ---
Assessment re: overly stressed The patient is a 72-year-old female who is alert with confusion. I completed an initial assessment with the son, Jackson via telephone. During my assessment, the son indicated that the patient resides at [facility], and has been there for a little over a year. He states there has been discussion about bringing her home to a family members home, however family circumstances have made that option difficult in recent months. The patient is confined to a wheelchair and does getup out of bed to participate in the activities that the [facility] provides. The patient does have a Power of [employer], in which her son, Jackson Mcginnis ([phone]), services as her POA. Her PCP is Dr. Jensen. Per son, the discharge plan is to return to [facility]. The son states there are no anticipated discharge needs. The son is in agreement to the discharge plan. At time of discharge, transportation will need to be arranged for the patient to return back. Prior to getting off of the phone, I inquired about the consult related to the patient feeling overly stressed. The son was advised that I attempted to speak with the patient, however during conversation, the patient appeared disoriented and I was unable to clarify what the patient feels she is in need of or the cause of her stressors. Per son, the patient is a worrier. He states he believes that her worrying behavior is stemmed from the patients onset of dementia. The patient worries about circumstances in the past that can not be resolved. He states within the family there have been barriers that are affecting the patients ability to go home, but the patient does fixate on circumstances that she has no control over. I inquired about mental health services, and he stated the patient does participate in the group activities and restoration activities at the [facility]. He believes a lot of her worry will reduce once she is able to return back to the family, however at this time, it is not feasible. Per son, there is discussion about bringing her home towards the end of the year when he moves into a new place. Addendum: 04/28/22 at 1745 by Cassy REN Amended: Links added.
--- NOTE | 2022-04-28 19:54 | NUR ---
END OF SHIFT SUMMARY: Patient has been pleasant throughout the day with simple complaints of muscle pain and repositioning requests, of which this RN and student nurse assisted patient with. Other dockery patient's colostomy was emptied once after given lactulose. Patient stated that she was having shortness of breath with the holding of air in colostomy. Once colostomy was emptied, patient had not further issues throughout the rest of the shift.
[2022-04-28 20:58] VITALS: BP_SYST 119
[2022-04-28] MEDS ORDERED: NON-FORMULARY MEDICATION (Lactulose 30 GM) PO SCH (21:00)
[2022-04-28] MEDS: DOCUSATE SODIUM 100 MG CAPSULE PO SCH (21:05)
[2022-04-28] MEDS: LACOSAMIDE 100 MG TABLET PO SCH (22:59)
[2022-04-29 06:11] LABS: BASOPHILS % (AUTO) 0.6 % (0.0-2.0); EOSINOPHILS # (AUTO) 0.2 K/uL (0.0-0.4); EOSINOPHILS % (AUTO) 3.5 % (0.0-4.0); HEMATOCRIT 35.5 % (36-48); HEMOGLOBIN 11.4 g/dL (12.0-16.0); LYMPHOCYTES # (AUTO) 1.6 K/uL (1.0-5.5); LYMPHOCYTES % (AUTO) 28.4 % (20.5-51.5); MEAN CORPUSCULAR HEMOGLOBIN 29 pg (27-31); MEAN CORPUSCULAR HGB CONC 32 % (32-36); MEAN CORPUSCULAR VOLUME 89 fL (79.0-98.0); MONOCYTES # (AUTO) 0.7 K/uL (0.0-1.0); MONOCYTES % (AUTO) 11.6 % (1.7-9.3); NEUTROPHILS # (AUTO) 3.1 K/uL (1.8-7.7); NEUTROPHILS % (AUTO) 55.9 % (40.0-70.0); PLATELET COUNT (AUTO) 100 K/uL (130-430); RED BLOOD CELL COUNT(AUTO) 3.97 MIL/uL (4.2-6.2); RED CELL DISTRIBUTION WIDTH 15.8 % (9.0-15.0); WHITE BLOOD COUNT (AUTO) 5.6 K/uL (4.8-10.8)
[2022-04-29] MEDS: SIMETHICONE 80 MG TAB.CHEW PO SCH ×3 (06:22→21:11)
[2022-04-29] MEDS: CYCLOBENZAPRINE HCL 10 MG TABLET (FLEXERIL) PO SCH ×3 (06:22→21:11)
[2022-04-29 06:23] LABS: PROTHROMBIN TIME 10.5 SECS (9.5-12.5)
[2022-04-29 06:43] LABS: CALCIUM 8.4 mg/dL (8.4-11.0); CREATININE 0.66 mg/dL (0.55-1.30); TOTAL BILIRUBIN 0.4 mg/dL (0.0-1.0)
[2022-04-29 06:49] LABS: TOTAL IRON BIND. CAPACITY 326 ug/dL (250-450)
[2022-04-29 08:00] VITALS: BP_SYST 117
[2022-04-29] MEDS ORDERED: ESCITALOPRAM OXALATE 10 MG TABLET PO SCH (09:00)
[2022-04-29] MEDS: CITALOPRAM HYDROBROMIDE 20 MG TABLET PO SCH (10:00)
[2022-04-29] MEDS: LACTULOSE 20 GM/30 ML UDC PO SCH ×2 (10:00→21:12)
[2022-04-29] MEDS: MULTIVITAMINS TAB 1 TABLET PO SCH (10:00)
[2022-04-29] MEDS: DOCUSATE SODIUM 100 MG CAPSULE PO SCH ×2 (10:00→21:11)
[2022-04-29] MEDS: RIFAXIMIN 550 MG TABLET PO SCH ×2 (10:00→21:11)
[2022-04-29] MEDS: PANTOPRAZOLE SODIUM 40 MG TAB PO SCH (10:00)
[2022-04-29] MEDS: CHOLECALCIFEROL (VITAMIN D3) 5,000 UNIT TABLET PO SCH (10:02)
[2022-04-29] MEDS: LEVOFLOXACIN 250 MG/D5W 50 ML IV SCH (10:03)
[2022-04-29 11:25] VITALS: BP_SYST 126
--- NOTE | 2022-04-29 12:25 | NUR ---
Spoke with Cristiana at [facility] regarding discharge planning. Referral packet faxed to [phone] for admissions review. Patient is from [facility]
[2022-04-29] MEDS: LACOSAMIDE 100 MG TABLET PO SCH ×2 (15:11→21:11)
[2022-04-29 15:15] VITALS: BP_SYST 145
--- NOTE | 2022-04-29 18:00 | NUR ---
PT HAD AN UNEVENTFUL DAY, DENIES ANY PAIN OR DISCOMFORT. PT TOLERATED MEDS AND DIET WELL. SAFETY PRECAUTIONS MAINTAINED THIS SHIFT. CONTINUE WITH POC
[2022-04-29 20:02] VITALS: BP_SYST 155
[2022-04-29] MEDS: HYDROcodone/ACETAMIN 10-325 MG TAB PO PRN (21:16)
[2022-04-30 01:41] VITALS: BP_SYST 131
[2022-04-30] MEDS: CYCLOBENZAPRINE HCL 10 MG TABLET (FLEXERIL) PO SCH ×3 (06:34→21:32)
[2022-04-30] MEDS: SIMETHICONE 80 MG TAB.CHEW PO SCH ×3 (06:34→21:32)
[2022-04-30 07:12] LABS: BASOPHILS % (AUTO) 0.4 % (0.0-2.0); EOSINOPHILS # (AUTO) 0.2 K/uL (0.0-0.4); EOSINOPHILS % (AUTO) 2.6 % (0.0-4.0); HEMATOCRIT 35.2 % (36-48); HEMOGLOBIN 11.4 g/dL (12.0-16.0); LYMPHOCYTES # (AUTO) 1.5 K/uL (1.0-5.5); LYMPHOCYTES % (AUTO) 22.3 % (20.5-51.5); MEAN CORPUSCULAR HEMOGLOBIN 29 pg (27-31); MEAN CORPUSCULAR HGB CONC 32 % (32-36); MEAN CORPUSCULAR VOLUME 89 fL (79.0-98.0); MONOCYTES % (AUTO) 13.9 % (1.7-9.3); NEUTROPHILS # (AUTO) 4.2 K/uL (1.8-7.7); NEUTROPHILS % (AUTO) 60.8 % (40.0-70.0); PLATELET COUNT (AUTO) 100 K/uL (130-430); RED BLOOD CELL COUNT(AUTO) 3.96 MIL/uL (4.2-6.2); RED CELL DISTRIBUTION WIDTH 15.8 % (9.0-15.0); WHITE BLOOD COUNT (AUTO) 6.9 K/uL (4.8-10.8)
[2022-04-30 08:25] LABS: CALCIUM 8.6 mg/dL (8.4-11.0); CREATININE 0.68 mg/dL (0.55-1.30)
--- NOTE | 2022-04-30 09:44 | NUR ---
CM follow up with Cristiana at [facility]; they have accepted the patient back. Room 35B is ready. will reach out to Dr Jensen for DC orders.
[2022-04-30] MEDS: LACTULOSE 20 GM/30 ML UDC PO SCH ×2 (10:03→21:35)
[2022-04-30] MEDS: DOCUSATE SODIUM 100 MG CAPSULE PO SCH ×2 (10:04→21:32)
[2022-04-30] MEDS: MULTIVITAMINS TAB 1 TABLET PO SCH (10:04)
[2022-04-30] MEDS: CITALOPRAM HYDROBROMIDE 20 MG TABLET PO SCH (10:04)
[2022-04-30] MEDS: CHOLECALCIFEROL (VITAMIN D3) 5,000 UNIT TABLET PO SCH (10:04)
[2022-04-30] MEDS: PANTOPRAZOLE SODIUM 40 MG TAB PO SCH (10:04)
[2022-04-30] MEDS: RIFAXIMIN 550 MG TABLET PO SCH ×2 (10:05→21:32)
[2022-04-30] MEDS: LEVOFLOXACIN 250 MG/D5W 50 ML IV SCH (10:06)
[2022-04-30] MEDS: LACOSAMIDE 100 MG TABLET PO SCH ×2 (10:28→21:32)
--- NOTE | 2022-04-30 11:25 | NUR ---
BATOOL contacted Dr Jensen for DC to SNF for IV abx orders. asked if he wanted a PT eval first. Patient has a bed ready for her at [facility]
--- NOTE | 2022-04-30 11:26 | NUR ---
GI MD DR LORAINE MITCHELL WAS CALLED, RE; ESBL OF THE URINE. SPOKE TO VASYL.
[2022-04-30 11:47] VITALS: BP_SYST 113
--- NOTE | 2022-04-30 12:21 | NUR ---
Patient urine C&S positive for ESBL, IV abx changed from Levaquin IV daily to Zosyn IV Q6. Will reach out to [place] at [facility] to update and see if they can accommodate an IV abx Q6h
[2022-04-30 13:06] LABS: ANTI NUCLEAR AB WITH REFLEX Negative (Negative)
--- NOTE | 2022-04-30 13:40 | NUR ---
CONSULTATION PAGED REASON FOR CONSULTATION:HERNIA WAS CONSULT CALLED?Y PERSON WHO WAS NOTIFIED:ARIADNE CONSULTING PHYSICIAN:KRISTEN CASTILLO RATING SPECIALIST SPECIALTY:SURGEON RATING SPECIALIST PHONE NUMBER:[phone] REQUESTING PHYSICIAN:JOSE BROWNE
[2022-04-30] MEDS: PIPERACILLIN/TAZO 4.5GM/DEX-IS 100 ML IV SCH ×2 (13:49→21:21)
--- NOTE | 2022-04-30 13:51 | NUR ---
BATOOL update to [facility] re: IV abx change and iso status. Cristiana in admissions states they can still accommodate patient but will need a few days to open up an iso bed. Cristiana to call when an iso bed available.
[2022-04-30 16:30] VITALS: BP_SYST 120
[2022-04-30] MEDS: HYDROcodone/ACETAMIN 10-325 MG TAB PO PRN (17:34)
[2022-04-30 20:00] VITALS: BP_SYST 124
[2022-05-01] VITALS: BP_SYST 121
[2022-05-01 01:06] LABS: AFP, TUMOR MARKER 1.8 ng/mL (0.0-9.2)
[2022-05-01 03:07] LABS: HEPATITIS A AB, IgM Negative (Negative); HEPATITIS B CORE AB, IgM Negative (Negative); HEPATITIS B SURFACE AG Negative (Negative)
[2022-05-01] MEDS: PIPERACILLIN/TAZO 4.5GM/DEX-IS 100 ML IV SCH ×3 (06:23→21:58)
[2022-05-01] MEDS: SIMETHICONE 80 MG TAB.CHEW PO SCH ×3 (06:24→21:54)
[2022-05-01] MEDS: CYCLOBENZAPRINE HCL 10 MG TABLET (FLEXERIL) PO SCH ×3 (06:24→21:54)
[2022-05-01 08:10] VITALS: BP_SYST 101
[2022-05-01] MEDS ORDERED: ERTA1VIA3 INJ (08:26)
--- NOTE | 2022-05-01 09:47 | NUR ---
CM follow up with Cristiana at [facility]. [facility] states they may have an isolation bed tomorrow 05/02/2022. CM to follow up tomorrow.
[2022-05-01] MEDS: RIFAXIMIN 550 MG TABLET PO SCH ×2 (10:07→21:54)
[2022-05-01] MEDS: PANTOPRAZOLE SODIUM 40 MG TAB PO SCH (10:07)
[2022-05-01] MEDS: DOCUSATE SODIUM 100 MG CAPSULE PO SCH ×2 (10:07→21:54)
[2022-05-01] MEDS: MULTIVITAMINS TAB 1 TABLET PO SCH (10:07)
[2022-05-01] MEDS: CITALOPRAM HYDROBROMIDE 20 MG TABLET PO SCH (10:07)
[2022-05-01] MEDS: CHOLECALCIFEROL (VITAMIN D3) 5,000 UNIT TABLET PO SCH (10:08)
[2022-05-01] MEDS: LACTULOSE 20 GM/30 ML UDC PO SCH ×2 (10:08→21:54)
[2022-05-01] MEDS: LACOSAMIDE 100 MG TABLET PO SCH ×2 (10:21→21:54)
[2022-05-01 12:00] VITALS: BP_SYST 118
--- NOTE | 2022-05-01 12:27 | NUR ---
Dietitian Recommendations * Ordered CCHO, 2gmNa diet GS, MPH, RD Please refer to Nutrition F/U for further details. Thanks! Addendum: 05/01/22 at [address] Amended: Links added.
[2022-05-01 16:00] VITALS: BP_SYST 121
[2022-05-01] MEDS ORDERED: GLUCOSE (DEXTROSE) ORAL GEL -Adults PO PRN (18:30)
[2022-05-01] MEDS ORDERED: D5W 1,000 ML IV PRN (18:30)
[2022-05-01] MEDS ORDERED: DEXTROSE 50% JECT 50 ML DISP.SYRIN IVP PRN (18:30)
[2022-05-01] MEDS ORDERED: POTASSIUM CHLORIDE 20 MEQ TAB.PRT.SR PO ONE (18:45)
[2022-05-01] MEDS: INSULIN LISPRO SLIDING SCALE 100 UNITS/ML, 3 ML VIAL (humaLOG) SUBCUT PRN (18:51)
[2022-05-01 19:00] VITALS: BP_SYST 106
[2022-05-01 20:00] VITALS: BP_SYST 106
[2022-05-02 02:09] VITALS: BP_SYST 118
[2022-05-02] MEDS: PIPERACILLIN/TAZO 4.5GM/DEX-IS 100 ML IV SCH ×3 (05:36→22:04)
[2022-05-02] MEDS: SIMETHICONE 80 MG TAB.CHEW PO SCH ×3 (05:36→22:03)
[2022-05-02] MEDS: CYCLOBENZAPRINE HCL 10 MG TABLET (FLEXERIL) PO SCH ×3 (05:36→22:03)
[2022-05-02 05:37] LABS: BASOPHILS % (AUTO) 0.6 % (0.0-2.0); EOSINOPHILS # (AUTO) 0.2 K/uL (0.0-0.4); EOSINOPHILS % (AUTO) 3.4 % (0.0-4.0); HEMATOCRIT 34.4 % (36-48); HEMOGLOBIN 11.1 g/dL (12.0-16.0); LYMPHOCYTES # (AUTO) 1.3 K/uL (1.0-5.5); LYMPHOCYTES % (AUTO) 21.8 % (20.5-51.5); MEAN CORPUSCULAR HEMOGLOBIN 29 pg (27-31); MEAN CORPUSCULAR HGB CONC 32 % (32-36); MEAN CORPUSCULAR VOLUME 89 fL (79.0-98.0); MONOCYTES # (AUTO) 0.7 K/uL (0.0-1.0); MONOCYTES % (AUTO) 12.2 % (1.7-9.3); NEUTROPHILS # (AUTO) 3.6 K/uL (1.8-7.7); PLATELET COUNT (AUTO) 105 K/uL (130-430); RED BLOOD CELL COUNT(AUTO) 3.86 MIL/uL (4.2-6.2); RED CELL DISTRIBUTION WIDTH 16.4 % (9.0-15.0); WHITE BLOOD COUNT (AUTO) 5.8 K/uL (4.8-10.8)
[2022-05-02 06:00] LABS: CALCIUM 8.7 mg/dL (8.4-11.0); CREATININE 0.77 mg/dL (0.55-1.30)
[2022-05-02 07:56] VITALS: BP_SYST 119
[2022-05-02] MEDS: DOCUSATE SODIUM 100 MG CAPSULE PO SCH ×2 (08:54→22:04)
[2022-05-02] MEDS: PANTOPRAZOLE SODIUM 40 MG TAB PO SCH (08:54)
[2022-05-02] MEDS: LACOSAMIDE 100 MG TABLET PO SCH ×2 (08:54→22:04)
[2022-05-02] MEDS: RIFAXIMIN 550 MG TABLET PO SCH ×2 (08:54→22:03)
[2022-05-02] MEDS: LACTULOSE 20 GM/30 ML UDC PO SCH ×2 (08:55→22:03)
[2022-05-02] MEDS: MULTIVITAMINS TAB 1 TABLET PO SCH (08:55)
[2022-05-02] MEDS: CITALOPRAM HYDROBROMIDE 20 MG TABLET PO SCH (08:55)
[2022-05-02] MEDS: HYDROcodone/ACETAMIN 10-325 MG TAB PO PRN (08:56)
[2022-05-02] MEDS: CHOLECALCIFEROL (VITAMIN D3) 5,000 UNIT TABLET PO SCH (08:58)
--- NOTE | 2022-05-02 09:58 | NUR ---
Spoke with Cristiana at [facility] [phone] regarding an open isolation bed. Cristiana states that they are still working on it. Cristiana also states that they have some discharges this weekend. MAYELIN FLORES notes discussed regarding possible IV abx change to Invanz 1g daily to finish 7d course. Cristiana informed CM that Invanz would be too expensive for their facility. will clarify with MAYELIN FLORES.
[2022-05-02] MEDS: INSULIN LISPRO SLIDING SCALE 100 UNITS/ML, 3 ML VIAL (humaLOG) SUBCUT PRN ×2 (11:50→22:18)
[2022-05-02 12:58] VITALS: BP_SYST 97
[2022-05-02 14:53] LABS: HEPATITIS C VIRUS AB Negative <0.8 s/co (0.0-0.7)
[2022-05-02 17:06] VITALS: BP_SYST 118
--- NOTE | 2022-05-02 19:00 | NUR ---
pt has been stable the whole shift, pt assisted to talk to her sister over the phone, assisted to bathroom 3x. pt had bm, colostomy bath changed.
[2022-05-02 20:00] VITALS: BP_SYST 102
--- NOTE | 2022-05-02 21:25 | NUR ---
assisted patient to use bathroom. fall precaution for unsteady gait, put patient back to bed, bed alarm set on, instruct patient to call for assistant quality manager. call light within reach.
[2022-05-03] VITALS: BP_SYST 108
--- NOTE | 2022-05-03 03:27 | NUR ---
empty the colostomy back, and teaching given to patient at bathroom. verbally understand, need more teaching noted.
[2022-05-03] MEDS: CYCLOBENZAPRINE HCL 10 MG TABLET (FLEXERIL) PO SCH ×3 (06:04→22:16)
[2022-05-03] MEDS: SIMETHICONE 80 MG TAB.CHEW PO SCH ×3 (06:04→22:16)
[2022-05-03] MEDS: PIPERACILLIN/TAZO 4.5GM/DEX-IS 100 ML IV SCH ×3 (06:05→22:58)
[2022-05-03 08:32] VITALS: BP_SYST 154
[2022-05-03] MEDS: LACTULOSE 20 GM/30 ML UDC PO SCH ×2 (09:21→22:16)
[2022-05-03] MEDS: CHOLECALCIFEROL (VITAMIN D3) 5,000 UNIT TABLET PO SCH (09:22)
[2022-05-03] MEDS: DOCUSATE SODIUM 100 MG CAPSULE PO SCH ×2 (09:22→22:16)
[2022-05-03] MEDS: MULTIVITAMINS TAB 1 TABLET PO SCH (09:22)
[2022-05-03] MEDS: CITALOPRAM HYDROBROMIDE 20 MG TABLET PO SCH (09:22)
[2022-05-03] MEDS: RIFAXIMIN 550 MG TABLET PO SCH ×2 (09:23→22:16)
[2022-05-03] MEDS: PANTOPRAZOLE SODIUM 40 MG TAB PO SCH (09:23)
[2022-05-03] MEDS: LACOSAMIDE 100 MG TABLET PO SCH ×2 (09:31→22:43)
--- NOTE | 2022-05-03 12:07 | NUR ---
CM: Faxed dc order and referral package to [facility] tel # [phone], fax # [phone].
[2022-05-03 12:20] VITALS: BP_SYST 117
[2022-05-03 15:08] VITALS: BP_SYST 121
--- NOTE | 2022-05-03 19:50 | NUR ---
RECEIVED PT IN BED, AOX4, EVENA ND UNLABORED BREATHING, DENIED ANY COMPLAINT, BRP, HAS NO IV ACCESS, LLQ COLOSTOMY INTACT AND DRAINING LIQUID BM, WILL CONTINUE WITH POC
[2022-05-03 19:55] VITALS: BP_SYST 135
[2022-05-03] MEDS: HYDROcodone/ACETAMIN 10-325 MG TAB PO PRN (22:21)
[2022-05-03] MEDS: INSULIN LISPRO SLIDING SCALE 100 UNITS/ML, 3 ML VIAL (humaLOG) SUBCUT PRN (22:29)
--- NOTE | 2022-05-03 23:41 | NUR ---
STARTED AN IV ACCESS ON PT, 22G TO RFA, WELL TOLERATED BY PT
[2022-05-04] VITALS: BP_SYST 129
[2022-05-04] MEDS: PIPERACILLIN/TAZO 4.5GM/DEX-IS 100 ML IV SCH ×3 (05:33→21:43)
[2022-05-04] MEDS: CYCLOBENZAPRINE HCL 10 MG TABLET (FLEXERIL) PO SCH ×3 (05:37→21:42)
[2022-05-04] MEDS: SIMETHICONE 80 MG TAB.CHEW PO SCH ×3 (05:37→21:42)
--- NOTE | 2022-05-04 07:10 | NUR ---
PT IN BED, AOX4, EVEN AND UNLABORED BREATHING, DENIED SOB, CP, OR ANY PAIN ATT, AMBULATORY, BRP, VOIDED AND LLQ COLOSTOMY INTACT AND DRAINING LIQUID BM, EMPTIED TWICE DURING SHIFT, RFA IV ACCESS PATENT AND FLUSHING, WILL ENDORSE TO INCOMING RN
[2022-05-04 07:39] LABS: BASOPHILS % (AUTO) 0.9 % (0.0-2.0); EOSINOPHILS # (AUTO) 0.2 K/uL (0.0-0.4); EOSINOPHILS % (AUTO) 3.6 % (0.0-4.0); HEMOGLOBIN 11.6 g/dL (12.0-16.0); LYMPHOCYTES # (AUTO) 1.4 K/uL (1.0-5.5); LYMPHOCYTES % (AUTO) 24.8 % (20.5-51.5); MEAN CORPUSCULAR HEMOGLOBIN 29 pg (27-31); MEAN CORPUSCULAR HGB CONC 32 % (32-36); MEAN CORPUSCULAR VOLUME 90 fL (79.0-98.0); MONOCYTES # (AUTO) 0.6 K/uL (0.0-1.0); MONOCYTES % (AUTO) 11.5 % (1.7-9.3); NEUTROPHILS # (AUTO) 3.3 K/uL (1.8-7.7); NEUTROPHILS % (AUTO) 59.2 % (40.0-70.0); PLATELET COUNT (AUTO) 120 K/uL (130-430); RED BLOOD CELL COUNT(AUTO) 4.01 MIL/uL (4.2-6.2); RED CELL DISTRIBUTION WIDTH 16.1 % (9.0-15.0); WHITE BLOOD COUNT (AUTO) 5.6 K/uL (4.8-10.8)
[2022-05-04 08:00] VITALS: BP_SYST 124
[2022-05-04 08:23] LABS: CALCIUM 8.8 mg/dL (8.4-11.0); CREATININE 0.86 mg/dL (0.55-1.30)
[2022-05-04] MEDS: CITALOPRAM HYDROBROMIDE 20 MG TABLET PO SCH (08:46)
[2022-05-04] MEDS: PANTOPRAZOLE SODIUM 40 MG TAB PO SCH (08:46)
[2022-05-04] MEDS: LACOSAMIDE 100 MG TABLET PO SCH ×2 (08:46→21:42)
[2022-05-04] MEDS: RIFAXIMIN 550 MG TABLET PO SCH ×2 (08:46→21:43)
[2022-05-04] MEDS: CHOLECALCIFEROL (VITAMIN D3) 5,000 UNIT TABLET PO SCH (08:47)
[2022-05-04] MEDS: MULTIVITAMINS TAB 1 TABLET PO SCH (08:47)
[2022-05-04] MEDS: LACTULOSE 20 GM/30 ML UDC PO SCH ×2 (08:53→21:43)
[2022-05-04] MEDS: DOCUSATE SODIUM 100 MG CAPSULE PO SCH ×2 (08:53→21:43)
[2022-05-04 12:00] VITALS: BP_SYST 128
[2022-05-04 12:06] LABS: ANTI-SMOOTH MUSCLE AB 8 Units (0-19)
[2022-05-04] MEDS: INSULIN LISPRO SLIDING SCALE 100 UNITS/ML, 3 ML VIAL (humaLOG) SUBCUT PRN ×2 (12:35→17:50)
[2022-05-04 16:00] VITALS: BP_SYST 123
--- NOTE | 2022-05-04 18:38 | NUR ---
A/OX3,VSS,AMBULATED WELL WITH WALKER,LLQ WITH COLOSTOMY BAG DRAINS 500 ML YELLOW LIQUIS STOOL.COLOSTOMY CARE DONE AND CHANGED BAG NEEDS ATTENDED,HOURLY ROUNDS MADE,SAFETY MAINTAINED,CALL LIGHT & PERSONAL ITEMS WITHIN PT REACH,CONTINUE TO MONITOR PT.
--- NOTE | 2022-05-04 19:30 | NUR ---
OPENING NOTES Patient resting in bed - no s/s pain or distress noted. Respirations even and unlabored - head of bed elevated. IV site patent - no s/s redness, infection, or infiltration. Bed locked and in lowest position. Call light within reach.
[2022-05-04 20:00] VITALS: BP_SYST 129
[2022-05-05] VITALS: BP_SYST 103
[2022-05-05] MEDS: PIPERACILLIN/TAZO 4.5GM/DEX-IS 100 ML IV SCH ×2 (06:08→15:18)
[2022-05-05] MEDS: CYCLOBENZAPRINE HCL 10 MG TABLET (FLEXERIL) PO SCH ×3 (06:09→21:12)
[2022-05-05] MEDS: SIMETHICONE 80 MG TAB.CHEW PO SCH ×3 (06:09→21:12)
--- NOTE | 2022-05-05 07:30 | NUR ---
RN OPENING NOTE PATIENT APPEARS TO BE RESTING WITH NO SIGNS OF ANY DISTRESS, BREATHING IS EQUAL AND NON LABORED. CALL LIGHT IS WITH IN REACH NO OTHER NEEDS AT THIS TIME.
[2022-05-05 08:03] VITALS: BP_SYST 111
[2022-05-05] MEDS: DOCUSATE SODIUM 100 MG CAPSULE PO SCH ×2 (08:25→21:12)
[2022-05-05] MEDS: RIFAXIMIN 550 MG TABLET PO SCH ×2 (08:25→21:12)
[2022-05-05] MEDS: CHOLECALCIFEROL (VITAMIN D3) 5,000 UNIT TABLET PO SCH (08:26)
[2022-05-05] MEDS: PANTOPRAZOLE SODIUM 40 MG TAB PO SCH (08:26)
[2022-05-05] MEDS: CITALOPRAM HYDROBROMIDE 20 MG TABLET PO SCH (08:26)
[2022-05-05] MEDS: MULTIVITAMINS TAB 1 TABLET PO SCH (08:26)
[2022-05-05] MEDS: LACOSAMIDE 100 MG TABLET PO SCH ×2 (08:26→21:12)
[2022-05-05] MEDS: LACTULOSE 20 GM/30 ML UDC PO SCH ×2 (08:26→21:12)
[2022-05-05] MEDS: HYDROcodone/ACETAMIN 10-325 MG TAB PO PRN (08:33)
--- NOTE | 2022-05-05 08:36 | NUR ---
MEDICATION PATIENTS SCHEDULE MEDICATION GIVEN PER ORDER. PATIENT IS ALSO COMPLAINS OF ABDOMINAL PAIN AT [facility]OM[facility] SITE. MEDICATED FOR PAIN. PATIENT IS CURRENTLY SITTING UP AND EATING BREAKFAST. PATIENT EDUCATED MULTIMEDIA TEACHER LIGHT FOR ASSISTANCE. CALL LIGHT IS WITH HER.
--- NOTE | 2022-05-05 11:41 | NUR ---
Cristiana at [facility] called back regarding isolation bed status. Cristiana and lockstitch machine operator Kaelyn would like BATOOL to reach out to ID Dr Estrada to ask if patient UTI is colonized at this point, and if so they can take the patient back today with no isolation bed needed. BATOOL placed a call to Dr Bruna Estrada office. awaiting CB
[2022-05-05 12:00] VITALS: BP_SYST 99
[2022-05-05] MEDS: INSULIN LISPRO SLIDING SCALE 100 UNITS/ML, 3 ML VIAL (humaLOG) SUBCUT PRN ×2 (12:00→17:34)
--- NOTE | 2022-05-05 12:07 | NUR ---
ACCU CHECK/ COLOSTOMY CARE PATIENTS ACCU CHECK DONE COVERAGE GIVEN PER ORDER. PATIENT IS AWAKE AND ALERT LUNCH TRAY PROVIDED TO PATIENT. PATIENT'S COLOSTOMY BAG EMPTIED. PATIENT EDUCATED AREA COORDINATOR LIGHT FOR ASSISTANCE. CALL LIGHT IS WITH HER NO OTHER NEEDS AT THIS TIME.
[2022-05-05 13:06] LABS: ALPHA-1-ANTITRYPSIN, S 141 mg/dL (101-187)
--- NOTE | 2022-05-05 15:14 | NUR ---
CM placed a second call to Dr Bruna Estrada office regarding patient infection process and DC planning.
--- NOTE | 2022-05-05 15:31 | NUR ---
RN rounding/medication patients scheduled medication given per order. patient is awake and medication given per order. patients iv catheter was leaking removed and placed gauze at insertion site iv catheter intact. new iv site obtained to the right fa 22g no pain flushing well. patient has family at bedside. educated in class special education teacher light for assistance. call light is with her.
[2022-05-05 16:20] VITALS: BP_SYST 119
--- NOTE | 2022-05-05 16:33 | NUR ---
Patient accepted at [facility]. iso bed available. room 15A. Transportation arranged with [facility]. ETA peanut picker @19:45. Will let pt RN and family know. will place DC packet on unit
[2022-05-05 17:45] VITALS: BP_SYST 116
--- NOTE | 2022-05-05 20:06 | NUR ---
RN CLOSING NOTE REPORT WAS ENDORSED TO NIGHT NURSE. GAVE REPORT TO JESSE NURSE. SON IS AWARE TRANSFER BACK TO THE FACILITY. PATIENT IS ALSO AWARE BUT HAS CONFUSION AND FORGET EASILY. PATIENT SHOWS NO SIGNS OF ANY DISTRESS BREATHING IS EQUAL AND NON LABORED. CALL LIGHT IS WITH HER EDUCATED TO USE CALL LIGHT FOR ASSISTANCE.
--- NOTE | 2022-05-05 20:07 | NUR ---
TELEMONITOR konrad spoke with [facility] regarding transport for discharge - states transportation delayed by 1 hour and a half to 2 hours. notified Maryuri Cui from [facility] the discharge location - states they cannot accept patient past 2200. Notified them that if transportation arrives before 2200 will notify facility before transport. Report already given to Stephanie STERN by Emily STERN.
--- NOTE | 2022-05-05 21:38 | NUR ---
patient discharged [id number] escorted by [facility] transport via [facility] stable discharge to [facility]
== END 2022-05-05 21:38 | DRG 394 ==
LOC: SED 16:56 → SMU 19:37
PROVIDERS: ADMIT Internal Medicine; ATTEND Internal Medicine
DX: K43.5 Parastomal hernia without obstruction or gangrene (principal); N39.0 Urinary tract infection, site not specified; K70.30 Alcoholic cirrhosis of liver without ascites; K76.82 Hepatic encephalopathy; D69.6 Thrombocytopenia, unspecified; G40.909 Epilepsy, unspecified, not intractable, without status epilepticus; F17.200 Nicotine dependence, unspecified, uncomplicated; K21.9 Gastro-esophageal reflux disease without esophagitis; I48.91 Unspecified atrial fibrillation; D64.9 Anemia, unspecified; B96.20 Unspecified Escherichia coli [E. coli] as the cause of diseases classified elsewhere; Z20.822 Contact with and (suspected) exposure to COVID-19; Z79.1 Long term (current) use of non-steroidal anti-inflammatories (NSAID); Z79.899 Other long term (current) drug therapy; Z93.3 Colostomy status; Z86.73 Personal history of transient ischemic attack (TIA), and cerebral infarction without residual deficits
CPT/HCPCS: 36415; 76376; 76700-TC; 80048; 80053; 80074; 81000; 82103; 82105; 82140; 83516; 83540; 83550; 83690; 85025; 85610-TC; 86038; 86803; 87081; 87086; 96365; 96367; 96375; 99285; J1956; J2270; J2543

== ENCOUNTER 2022-10-16 10:09 | Emergency (ER) | payer OTHER, MEDICAID ==
[~2022-10-16] VITALS: Ht 152.4 cm; Wt 63.5 kg
[~2022-10-16 10:09] MED LIST changes: +ERTA1VIA3 INJ; +METF-379 PO
[2022-10-16 10:13] VITALS: BP_SYST 117; PULSE 77; RESP 16; TEMP 97.7; O2SAT 99
[2022-10-16 10:44] LABS: BASOPHILS % (AUTO) 0.5 % (0.0-2.0); EOSINOPHILS # (AUTO) 0.1 K/uL (0.0-0.4); EOSINOPHILS % (AUTO) 2.4 % (0.0-4.0); HEMATOCRIT 34.4 % (36-48); HEMOGLOBIN 10.8 g/dL (12.0-16.0); LYMPHOCYTES # (AUTO) 1.3 K/uL (1.0-5.5); LYMPHOCYTES % (AUTO) 23.2 % (20.5-51.5); MEAN CORPUSCULAR HEMOGLOBIN 28 pg (27-31); MEAN CORPUSCULAR HGB CONC 32 % (32-36); MEAN CORPUSCULAR VOLUME 88 fL (79.0-98.0); MONOCYTES # (AUTO) 0.8 K/uL (0.0-1.0); MONOCYTES % (AUTO) 13.7 % (1.7-9.3); NEUTROPHILS # (AUTO) 3.4 K/uL (1.8-7.7); NEUTROPHILS % (AUTO) 60.2 % (40.0-70.0); PLATELET COUNT (AUTO) 99 K/uL (130-430); RED BLOOD CELL COUNT(AUTO) 3.89 MIL/uL (4.2-6.2); RED CELL DISTRIBUTION WIDTH 16.1 % (9.0-15.0); WHITE BLOOD COUNT (AUTO) 5.7 K/uL (4.8-10.8)
[2022-10-16 10:59] LABS: CALCIUM 8.6 mg/dL (8.4-11.0); CREATININE 0.7 mg/dL (0.55-1.30)
[2022-10-16 11:03] LABS: ALBUMIN 3.3 g/dL (3.4-4.8); TOTAL BILIRUBIN 0.4 mg/dL (0.0-1.0); TOTAL PROTEIN, SERUM 6.7 g/dL (6.4-8.3)
[2022-10-16 11:12] LABS: PROTHROMBIN TIME 10.1 SECS (9.5-12.5)
[2022-10-16] MEDS ORDERED: MORPHINE 4 MG INJ. 4 MG/ML VIAL IM ONE (12:45)
[2022-10-16 15:27] VITALS: BP_SYST 123; PULSE 74; RESP 16; TEMP 98.1; O2SAT 94
== END 2022-10-16 15:23 | disposition home or self-care (01) ==
LOC: SED 10:09
DX: K92.2 Gastrointestinal hemorrhage, unspecified (principal); K21.9 Gastro-esophageal reflux disease without esophagitis; I10 Essential (primary) hypertension; Z79.899 Other long term (current) drug therapy
CPT/HCPCS: 99285; 74176; 80053; 82150; 83690; 85025; 85610; 85730; 86886; 86900; 86901; 36415; 76376; 96372; 83605; J2270

== ENCOUNTER 2022-10-25 12:05 | Inpatient (IN) | payer OTHER, MEDICAID ==
[~2022-10-25] VITALS: Ht 152.4 cm; Wt 67.1 kg
[~2022-10-25 12:05] MED LIST changes: +POTA-360 PO; -POTA-88 PO
[2022-10-25 12:10] VITALS: BP_SYST 123; PULSE 76; RESP 18; TEMP 97.2; O2SAT 95
[2022-10-25 12:44] LABS: BASOPHILS % (AUTO) 0.7 % (0.0-2.0); EOSINOPHILS # (AUTO) 0.2 K/uL (0.0-0.4); HEMATOCRIT 32.7 % (36-48); HEMOGLOBIN 10.4 g/dL (12.0-16.0); LYMPHOCYTES # (AUTO) 1.4 K/uL (1.0-5.5); LYMPHOCYTES % (AUTO) 25.1 % (20.5-51.5); MEAN CORPUSCULAR HEMOGLOBIN 28 pg (27-31); MEAN CORPUSCULAR HGB CONC 32 % (32-36); MEAN CORPUSCULAR VOLUME 89 fL (79.0-98.0); MONOCYTES # (AUTO) 0.7 K/uL (0.0-1.0); MONOCYTES % (AUTO) 13.5 % (1.7-9.3); NEUTROPHILS # (AUTO) 3.2 K/uL (1.8-7.7); NEUTROPHILS % (AUTO) 57.7 % (40.0-70.0); PLATELET COUNT (AUTO) 100 K/uL (130-430); RED BLOOD CELL COUNT(AUTO) 3.69 MIL/uL (4.2-6.2); RED CELL DISTRIBUTION WIDTH 16.3 % (9.0-15.0); WHITE BLOOD COUNT (AUTO) 5.5 K/uL (4.8-10.8)
[2022-10-25 12:52] LABS: CALCIUM 8.8 mg/dL (8.4-11.0); CREATININE 0.76 mg/dL (0.55-1.30); POTASSIUM 4.3 mmol/L (3.5-5.1)
[2022-10-25 12:59] LABS: ALBUMIN 3.2 g/dL (3.4-4.8); TOTAL BILIRUBIN 0.3 mg/dL (0.0-1.0); TOTAL PROTEIN, SERUM 6.5 g/dL (6.4-8.3)
[2022-10-25 13:56] LABS: BILIRUBIN,URINE NEGATIVE (NEGATIVE); BLOOD, URINE NEGATIVE (NEGATIVE); CLARITY/URINE Clear (CLEAR); COLOR,URINE YELLOW (YELLOW); GLUCOSE,URINE NEGATIVE (NEGATIVE); KETONES,URINE NEGATIVE (NEGATIVE); LEUKOCYTE ESTERASE ,URINE NEGATIVE (NEGATIVE); NITRITE, URINE POSITIVE (NEGATIVE); PROTEIN URINE NEGATIVE (NEGATIVE); UROBILINOGEN,URINE 0.2 (0.2-1.0)
[2022-10-25 14:14] LABS: RBC,URINE 0-3 /HPF (0-3); WBC,URINE 0-3 /HPF (0-3)
[2022-10-25 14:15] LABS: BACTERIA,URINE MANY /HPF (None Seen)
[2022-10-25] MEDS ORDERED: KETOROLAC TROMETHAMINE 30 MG VIAL IVP ONE (14:30)
[2022-10-25] MEDS ORDERED: NACL 0.9% 1,000 ML IV ONE (14:30)
[2022-10-25] MEDS ORDERED: NACL 0.9% 1,000 ML IV SCH (16:00)
[2022-10-25] MEDS ORDERED: ONDANSETRON HCL 4 MG/2 ML VIAL IVP ONE (16:15)
[2022-10-25] MEDS ORDERED: MORPHINE 2 MG/ML INJ. SYRINGE IVP ONE (16:15)
[2022-10-25 21:04] VITALS: BP_SYST 128; PULSE 76; RESP 18; TEMP 97.1
[2022-10-25 21:30] VITALS: O2SAT 95
[2022-10-25] MEDS ORDERED: FLU VACC QS2023-24(6MOS UP)/PF 0.5 ML/SYR SYRINGE I.M. PRN (21:30)
[2022-10-26] VITALS (7 sets, daily range): BP systolic 119–132; PULSE 64–78; RESP 18; TEMP 96.6–98.8; O2SAT 94–98
[2022-10-26] MEDS: D5/0.45 NS 1,000 ML IV SCH ×2 (00:05→18:47)
[2022-10-26] MEDS ORDERED: cefTRIAXone 1 GM VIAL ONE (00:32)
[2022-10-26] MEDS: cefTRIAXone 1 GM in D5W 50 ML IV SCH ×2 (00:55→21:43)
[2022-10-26 09:14] LABS: BASOPHILS % (AUTO) 0.4 % (0.0-2.0); EOSINOPHILS # (AUTO) 0.2 K/uL (0.0-0.4); EOSINOPHILS % (AUTO) 2.7 % (0.0-4.0); HEMATOCRIT 33.7 % (36-48); HEMOGLOBIN 10.6 g/dL (12.0-16.0); LYMPHOCYTES # (AUTO) 1.1 K/uL (1.0-5.5); LYMPHOCYTES % (AUTO) 18.8 % (20.5-51.5); MEAN CORPUSCULAR HEMOGLOBIN 28 pg (27-31); MEAN CORPUSCULAR HGB CONC 32 % (32-36); MEAN CORPUSCULAR VOLUME 88 fL (79.0-98.0); MONOCYTES # (AUTO) 0.5 K/uL (0.0-1.0); MONOCYTES % (AUTO) 8.7 % (1.7-9.3); NEUTROPHILS % (AUTO) 69.4 % (40.0-70.0); PLATELET COUNT (AUTO) 99 K/uL (130-430); RED BLOOD CELL COUNT(AUTO) 3.81 MIL/uL (4.2-6.2); RED CELL DISTRIBUTION WIDTH 16.1 % (9.0-15.0); WHITE BLOOD COUNT (AUTO) 5.8 K/uL (4.8-10.8)
[2022-10-26 09:26] LABS: CALCIUM 8.2 mg/dL (8.4-11.0); CREATININE 0.59 mg/dL (0.55-1.30); POTASSIUM 3.8 mmol/L (3.5-5.1)
[2022-10-26 09:31] LABS: ALBUMIN 3.2 g/dL (3.4-4.8); PROTHROMBIN TIME 10.2 SECS (9.5-12.5); TOTAL BILIRUBIN 0.4 mg/dL (0.0-1.0); TOTAL PROTEIN, SERUM 6.4 g/dL (6.4-8.3)
[2022-10-26] MEDS: PANTOPRAZOLE SODIUM 40 MG/VIAL (PROTONIX) IVP SCH (09:34)
[2022-10-26] MEDS: CYCLOBENZAPRINE HCL 10 MG TABLET (FLEXERIL) PO SCH ×2 (14:00→21:35)
[2022-10-26] MEDS: LACTULOSE 20 GM/30 ML UDC PO SCH (21:34)
[2022-10-26] MEDS: DOCUSATE SODIUM 100 MG CAPSULE PO SCH (21:34)
[2022-10-26] MEDS: LACOSAMIDE 100 MG TABLET PO SCH (21:34)
[2022-10-26] MEDS: HYDROcodone/ACETAMIN 10-325 MG TAB PO PRN (21:42)
[2022-10-27] VITALS: BP_SYST 134; PULSE 74; RESP 16; TEMP 98.6; O2SAT 95
[2022-10-27 05:33] LABS: BASOPHILS % (AUTO) 0.2 % (0.0-2.0); EOSINOPHILS # (AUTO) 0.1 K/uL (0.0-0.4); HEMATOCRIT 33.7 % (36-48); HEMOGLOBIN 10.7 g/dL (12.0-16.0); LYMPHOCYTES # (AUTO) 1.2 K/uL (1.0-5.5); LYMPHOCYTES % (AUTO) 23.7 % (20.5-51.5); MEAN CORPUSCULAR HEMOGLOBIN 28 pg (27-31); MEAN CORPUSCULAR HGB CONC 32 % (32-36); MEAN CORPUSCULAR VOLUME 88 fL (79.0-98.0); MONOCYTES # (AUTO) 0.6 K/uL (0.0-1.0); MONOCYTES % (AUTO) 12.8 % (1.7-9.3); NEUTROPHILS # (AUTO) 3.1 K/uL (1.8-7.7); NEUTROPHILS % (AUTO) 61.3 % (40.0-70.0); PLATELET COUNT (AUTO) 95 K/uL (130-430); RED BLOOD CELL COUNT(AUTO) 3.82 MIL/uL (4.2-6.2)
[2022-10-27 05:44] LABS: CALCIUM 8.4 mg/dL (8.4-11.0); CREATININE 0.55 mg/dL (0.55-1.30); POTASSIUM 3.6 mmol/L (3.5-5.1)
[2022-10-27] MEDS: CYCLOBENZAPRINE HCL 10 MG TABLET (FLEXERIL) PO SCH ×3 (06:37→21:51)
[2022-10-27 08:00] VITALS: BP_SYST 125; PULSE 73; RESP 17; TEMP 97.5; O2SAT 96
[2022-10-27] MEDS ORDERED: ESCITALOPRAM OXALATE 10 MG TABLET PO SCH (09:00)
[2022-10-27] MEDS: PANTOPRAZOLE SODIUM 40 MG/VIAL (PROTONIX) IVP SCH (09:22)
[2022-10-27] MEDS: CITALOPRAM HYDROBROMIDE 20 MG TABLET PO SCH (10:18)
[2022-10-27] MEDS: DOCUSATE SODIUM 100 MG CAPSULE PO SCH ×2 (10:18→21:51)
[2022-10-27] MEDS: MULTIVITAMINS TAB 1 TABLET PO SCH (10:18)
[2022-10-27] MEDS: LACOSAMIDE 100 MG TABLET PO SCH ×2 (10:18→21:57)
[2022-10-27] MEDS: CHOLECALCIFEROL (VITAMIN D3) 5,000 UNIT TABLET PO SCH (10:19)
[2022-10-27] MEDS: LACTULOSE 20 GM/30 ML UDC PO SCH ×2 (10:19→21:50)
[2022-10-27] MEDS: HYDROcodone/ACETAMIN 10-325 MG TAB PO PRN ×2 (10:19→21:59)
[2022-10-27 11:50] VITALS: BP_SYST 128; PULSE 79; RESP 18; TEMP 98.6; O2SAT 95
[2022-10-27] MEDS: D5/0.45 NS 1,000 ML IV SCH (14:15)
[2022-10-27 16:00] VITALS: BP_SYST 111; PULSE 77; RESP 18; TEMP 98.2; O2SAT 95
[2022-10-27] MEDS: cefTRIAXone 1 GM in D5W 50 ML IV SCH (21:51)
[2022-10-28 01:02] VITALS: BP_SYST 113; PULSE 83; RESP 17; TEMP 97.4; O2SAT 96
[2022-10-28 05:04] LABS: BASOPHILS % (AUTO) 0.5 % (0.0-2.0); EOSINOPHILS # (AUTO) 0.2 K/uL (0.0-0.4); EOSINOPHILS % (AUTO) 3.4 % (0.0-4.0); HEMATOCRIT 33.9 % (36-48); HEMOGLOBIN 10.7 g/dL (12.0-16.0); LYMPHOCYTES # (AUTO) 1.2 K/uL (1.0-5.5); LYMPHOCYTES % (AUTO) 24.1 % (20.5-51.5); MEAN CORPUSCULAR HEMOGLOBIN 28 pg (27-31); MEAN CORPUSCULAR HGB CONC 32 % (32-36); MEAN CORPUSCULAR VOLUME 88 fL (79.0-98.0); MONOCYTES # (AUTO) 0.7 K/uL (0.0-1.0); MONOCYTES % (AUTO) 13.2 % (1.7-9.3); NEUTROPHILS % (AUTO) 58.8 % (40.0-70.0); PLATELET COUNT (AUTO) 97 K/uL (130-430); RED BLOOD CELL COUNT(AUTO) 3.83 MIL/uL (4.2-6.2); RED CELL DISTRIBUTION WIDTH 15.9 % (9.0-15.0)
[2022-10-28 05:36] LABS: ALBUMIN 3.3 g/dL (3.4-4.8); CALCIUM 8.3 mg/dL (8.4-11.0); CREATININE 0.61 mg/dL (0.55-1.30); POTASSIUM 3.7 mmol/L (3.5-5.1); TOTAL BILIRUBIN 0.4 mg/dL (0.0-1.0); TOTAL PROTEIN, SERUM 6.5 g/dL (6.4-8.3)
[2022-10-28] MEDS: CYCLOBENZAPRINE HCL 10 MG TABLET (FLEXERIL) PO SCH ×3 (05:50→22:12)
[2022-10-28 08:00] VITALS: BP_SYST 138; PULSE 74; RESP 16; TEMP 97.7; O2SAT 96
[2022-10-28] MEDS: LACTULOSE 20 GM/30 ML UDC PO SCH ×2 (09:55→22:12)
[2022-10-28] MEDS: CHOLECALCIFEROL (VITAMIN D3) 5,000 UNIT TABLET PO SCH (09:55)
[2022-10-28] MEDS: CITALOPRAM HYDROBROMIDE 20 MG TABLET PO SCH (09:56)
[2022-10-28] MEDS: DOCUSATE SODIUM 100 MG CAPSULE PO SCH ×2 (09:56→22:12)
[2022-10-28] MEDS: PANTOPRAZOLE SODIUM 40 MG/VIAL (PROTONIX) IVP SCH (09:56)
[2022-10-28] MEDS: MULTIVITAMINS TAB 1 TABLET PO SCH (09:56)
[2022-10-28] MEDS: LACOSAMIDE 100 MG TABLET PO SCH ×2 (11:34→22:12)
[2022-10-28] MEDS: D5/0.45 NS 1,000 ML IV SCH ×2 (11:36→18:05)
[2022-10-28 12:00] VITALS: BP_SYST 126; PULSE 77; RESP 16; TEMP 97.2; O2SAT 97
[2022-10-28 16:10] VITALS: BP_SYST 110; PULSE 76; RESP 18; TEMP 97.9; O2SAT 98
[2022-10-28 20:00] VITALS: BP_SYST 111; PULSE 82; RESP 18; TEMP 98.1; O2SAT 97
[2022-10-28] MEDS: cefTRIAXone 1 GM in D5W 50 ML IV SCH (22:13)
[2022-10-29] VITALS (7 sets, daily range): BP systolic 113–124; PULSE 77–83; RESP 14–20; TEMP 97.8–98.4; O2SAT 96–98
[2022-10-29] MEDS: CYCLOBENZAPRINE HCL 10 MG TABLET (FLEXERIL) PO SCH ×3 (05:48→21:15)
[2022-10-29 06:48] LABS: BASOPHILS % (AUTO) 0.6 % (0.0-2.0); EOSINOPHILS # (AUTO) 0.2 K/uL (0.0-0.4); EOSINOPHILS % (AUTO) 3.1 % (0.0-4.0); HEMOGLOBIN 11.4 g/dL (12.0-16.0); LYMPHOCYTES # (AUTO) 0.7 K/uL (1.0-5.5); LYMPHOCYTES % (AUTO) 14.4 % (20.5-51.5); MEAN CORPUSCULAR HEMOGLOBIN 28 pg (27-31); MEAN CORPUSCULAR HGB CONC 32 % (32-36); MEAN CORPUSCULAR VOLUME 88 fL (79.0-98.0); MONOCYTES # (AUTO) 0.5 K/uL (0.0-1.0); MONOCYTES % (AUTO) 10.7 % (1.7-9.3); NEUTROPHILS # (AUTO) 3.6 K/uL (1.8-7.7); NEUTROPHILS % (AUTO) 71.2 % (40.0-70.0); PLATELET COUNT (AUTO) 105 K/uL (130-430); RED BLOOD CELL COUNT(AUTO) 4.07 MIL/uL (4.2-6.2); WHITE BLOOD COUNT (AUTO) 5.1 K/uL (4.8-10.8)
[2022-10-29 07:03] LABS: CALCIUM 8.7 mg/dL (8.4-11.0); CREATININE 0.63 mg/dL (0.55-1.30); POTASSIUM 3.5 mmol/L (3.5-5.1)
[2022-10-29] MEDS: CHOLECALCIFEROL (VITAMIN D3) 5,000 UNIT TABLET PO SCH (10:09)
[2022-10-29] MEDS: DOCUSATE SODIUM 100 MG CAPSULE PO SCH ×2 (10:09→21:15)
[2022-10-29] MEDS: MULTIVITAMINS TAB 1 TABLET PO SCH (10:09)
[2022-10-29] MEDS: CITALOPRAM HYDROBROMIDE 20 MG TABLET PO SCH (10:09)
[2022-10-29] MEDS: LACTULOSE 20 GM/30 ML UDC PO SCH ×2 (10:09→21:15)
[2022-10-29] MEDS: LACOSAMIDE 100 MG TABLET PO SCH ×2 (10:10→21:18)
[2022-10-29] MEDS: HYDROcodone/ACETAMIN 10-325 MG TAB PO PRN ×2 (10:10→15:57)
[2022-10-29] MEDS: PANTOPRAZOLE SODIUM 40 MG/VIAL (PROTONIX) IVP SCH (10:15)
[2022-10-29] MEDS: D5/0.45 NS 1,000 ML IV SCH ×2 (22:01→22:11)
[2022-10-29] MEDS: cefTRIAXone 1 GM in D5W 50 ML IV SCH ×2 (22:01→22:10)
[2022-10-30 03:21] VITALS: BP_SYST 106; PULSE 82; RESP 18; TEMP 99.1; O2SAT 97
[2022-10-30] MEDS: CYCLOBENZAPRINE HCL 10 MG TABLET (FLEXERIL) PO SCH ×3 (05:20→21:42)
[2022-10-30 06:54] LABS: BASOPHILS % (AUTO) 0.4 % (0.0-2.0); EOSINOPHILS # (AUTO) 0.2 K/uL (0.0-0.4); EOSINOPHILS % (AUTO) 2.5 % (0.0-4.0); HEMOGLOBIN 11.2 g/dL (12.0-16.0); LYMPHOCYTES % (AUTO) 15.5 % (20.5-51.5); MEAN CORPUSCULAR HEMOGLOBIN 28 pg (27-31); MEAN CORPUSCULAR HGB CONC 31 % (32-36); MEAN CORPUSCULAR VOLUME 90 fL (79.0-98.0); MONOCYTES # (AUTO) 0.9 K/uL (0.0-1.0); MONOCYTES % (AUTO) 13.7 % (1.7-9.3); NEUTROPHILS # (AUTO) 4.3 K/uL (1.8-7.7); NEUTROPHILS % (AUTO) 67.9 % (40.0-70.0); PLATELET COUNT (AUTO) 112 K/uL (130-430); RED BLOOD CELL COUNT(AUTO) 4.02 MIL/uL (4.2-6.2); WHITE BLOOD COUNT (AUTO) 6.3 K/uL (4.8-10.8)
[2022-10-30 07:08] LABS: CALCIUM 8.5 mg/dL (8.4-11.0); CREATININE 0.56 mg/dL (0.55-1.30); POTASSIUM 3.6 mmol/L (3.5-5.1)
[2022-10-30 08:00] VITALS: BP_SYST 114; PULSE 82; RESP 16; TEMP 98.6; O2SAT 97; O2SAT 98
[2022-10-30] MEDS: PANTOPRAZOLE SODIUM 40 MG/VIAL (PROTONIX) IVP SCH (09:23)
[2022-10-30] MEDS: MULTIVITAMINS TAB 1 TABLET PO SCH (10:21)
[2022-10-30] MEDS: CITALOPRAM HYDROBROMIDE 20 MG TABLET PO SCH (10:22)
[2022-10-30] MEDS: LACTULOSE 20 GM/30 ML UDC PO SCH ×2 (10:22→21:42)
[2022-10-30] MEDS: CHOLECALCIFEROL (VITAMIN D3) 5,000 UNIT TABLET PO SCH (10:22)
[2022-10-30] MEDS: DOCUSATE SODIUM 100 MG CAPSULE PO SCH ×2 (10:22→21:42)
[2022-10-30] MEDS: LACOSAMIDE 100 MG TABLET PO SCH ×2 (10:23→21:51)
[2022-10-30 12:00] VITALS: BP_SYST 128; PULSE 83; RESP 16; TEMP 98.2; O2SAT 96
[2022-10-30] MEDS ORDERED: GOLYTELY / COLYTE SOLUTION 4 LITERS PO ONE (12:00)
[2022-10-30 16:31] VITALS: BP_SYST 129; PULSE 79; RESP 17; TEMP 98; O2SAT 97
[2022-10-30 20:35] VITALS: BP_SYST 111; PULSE 76; RESP 18; TEMP 97; O2SAT 98
[2022-10-30] MEDS: cefTRIAXone 1 GM in D5W 50 ML IV SCH (21:07)
[2022-10-30] MEDS: D5/0.45 NS 1,000 ML IV SCH (21:52)
[2022-10-30 23:08] VITALS: BP_SYST 111; PULSE 76; RESP 18; TEMP 97; O2SAT 98
[2022-10-31 00:24] VITALS: BP_SYST 134; PULSE 76; RESP 16; TEMP 96.2; O2SAT 97
[2022-10-31] MEDS ORDERED: GOLYTELY / COLYTE SOLUTION 4 LITERS ONE (01:16)
[2022-10-31 01:59] VITALS: O2SAT 98
[2022-10-31] MEDS: CYCLOBENZAPRINE HCL 10 MG TABLET (FLEXERIL) PO SCH ×3 (05:16→21:45)
[2022-10-31] MEDS ORDERED: GOLYTELY / COLYTE SOLUTION 4 LITERS PO ONE (06:45)
[2022-10-31 07:30] VITALS: BP_SYST 114; PULSE 74; RESP 18; TEMP 98.2; O2SAT 97
[2022-10-31 07:42] LABS: BASOPHILS # (AUTO) 0.1 K/uL (0.0-0.2); EOSINOPHILS # (AUTO) 0.2 K/uL (0.0-0.4); EOSINOPHILS % (AUTO) 3.1 % (0.0-4.0); HEMATOCRIT 34.1 % (36-48); HEMOGLOBIN 10.8 g/dL (12.0-16.0); LYMPHOCYTES # (AUTO) 1.4 K/uL (1.0-5.5); LYMPHOCYTES % (AUTO) 21.2 % (20.5-51.5); MEAN CORPUSCULAR HEMOGLOBIN 28 pg (27-31); MEAN CORPUSCULAR HGB CONC 32 % (32-36); MEAN CORPUSCULAR VOLUME 89 fL (79.0-98.0); MONOCYTES # (AUTO) 0.8 K/uL (0.0-1.0); MONOCYTES % (AUTO) 11.9 % (1.7-9.3); NEUTROPHILS # (AUTO) 4.1 K/uL (1.8-7.7); NEUTROPHILS % (AUTO) 62.8 % (40.0-70.0); PLATELET COUNT (AUTO) 105 K/uL (130-430); RED BLOOD CELL COUNT(AUTO) 3.83 MIL/uL (4.2-6.2); WHITE BLOOD COUNT (AUTO) 6.5 K/uL (4.8-10.8)
[2022-10-31 07:51] LABS: CALCIUM 8.1 mg/dL (8.4-11.0); CREATININE 0.51 mg/dL (0.55-1.30); POTASSIUM 3.4 mmol/L (3.5-5.1)
[2022-10-31] MEDS ORDERED: DIATR MEGLU/DIATRIZ SOD 30 ML SOLUTION PO ONE ×3 (08:02→10:31)
[2022-10-31 08:35] LABS: PROTHROMBIN TIME 10.6 SECS (9.5-12.5)
[2022-10-31] MEDS: LACTULOSE 20 GM/30 ML UDC PO SCH ×2 (08:48→21:46)
[2022-10-31] MEDS: MULTIVITAMINS TAB 1 TABLET PO SCH (08:50)
[2022-10-31] MEDS: PANTOPRAZOLE SODIUM 40 MG/VIAL (PROTONIX) IVP SCH (08:50)
[2022-10-31] MEDS: CHOLECALCIFEROL (VITAMIN D3) 5,000 UNIT TABLET PO SCH (08:51)
[2022-10-31] MEDS: DOCUSATE SODIUM 100 MG CAPSULE PO SCH ×2 (08:51→21:46)
[2022-10-31] MEDS: LACOSAMIDE 100 MG TABLET PO SCH ×2 (08:52→21:46)
[2022-10-31] MEDS: CITALOPRAM HYDROBROMIDE 20 MG TABLET PO SCH (08:52)
[2022-10-31] MEDS ORDERED: iohexoL 350 mgI/mL, 100 ML INFUS..BTL IV ONE (10:27)
[2022-10-31 12:49] VITALS: BP_SYST 128; PULSE 75; RESP 17; TEMP 96.8; O2SAT 96
[2022-10-31 16:24] VITALS: BP_SYST 119; PULSE 72; RESP 18; TEMP 97.1; O2SAT 97
[2022-10-31] MEDS: D5/0.45 NS 1,000 ML IV SCH (18:25)
[2022-10-31] MEDS: GOLYTELY / COLYTE SOLUTION 4 LITERS PO SCH (18:26)
[2022-10-31] MEDS: cefTRIAXone 1 GM in D5W 50 ML IV SCH (23:23)
[2022-11-01] VITALS (7 sets, daily range): BP systolic 105–133; PULSE 68–79; RESP 14–18; TEMP 97–98.2; O2SAT 95–98
[2022-11-01] MEDS: CYCLOBENZAPRINE HCL 10 MG TABLET (FLEXERIL) PO SCH ×3 (05:51→21:11)
[2022-11-01 06:14] LABS: BASOPHILS % (AUTO) 0.6 % (0.0-2.0); EOSINOPHILS # (AUTO) 0.2 K/uL (0.0-0.4); EOSINOPHILS % (AUTO) 2.5 % (0.0-4.0); HEMATOCRIT 35.1 % (36-48); HEMOGLOBIN 11.1 g/dL (12.0-16.0); LYMPHOCYTES # (AUTO) 1.2 K/uL (1.0-5.5); LYMPHOCYTES % (AUTO) 20.5 % (20.5-51.5); MEAN CORPUSCULAR HEMOGLOBIN 28 pg (27-31); MEAN CORPUSCULAR HGB CONC 32 % (32-36); MEAN CORPUSCULAR VOLUME 88 fL (79.0-98.0); MONOCYTES # (AUTO) 0.7 K/uL (0.0-1.0); MONOCYTES % (AUTO) 11.7 % (1.7-9.3); NEUTROPHILS # (AUTO) 3.9 K/uL (1.8-7.7); NEUTROPHILS % (AUTO) 64.7 % (40.0-70.0); PLATELET COUNT (AUTO) 125 K/uL (130-430); RED BLOOD CELL COUNT(AUTO) 3.97 MIL/uL (4.2-6.2); RED CELL DISTRIBUTION WIDTH 16.2 % (9.0-15.0)
[2022-11-01 06:38] LABS: CALCIUM 8.6 mg/dL (8.4-11.0); CREATININE 0.58 mg/dL (0.55-1.30); POTASSIUM 3.4 mmol/L (3.5-5.1)
[2022-11-01] MEDS: LACTULOSE 20 GM/30 ML UDC PO SCH ×2 (10:25→21:11)
[2022-11-01] MEDS: PANTOPRAZOLE SODIUM 40 MG/VIAL (PROTONIX) IVP SCH (10:25)
[2022-11-01] MEDS: DOCUSATE SODIUM 100 MG CAPSULE PO SCH ×2 (10:26→21:10)
[2022-11-01] MEDS: MULTIVITAMINS TAB 1 TABLET PO SCH (10:26)
[2022-11-01] MEDS: LACOSAMIDE 100 MG TABLET PO SCH ×2 (10:26→21:11)
[2022-11-01] MEDS: CHOLECALCIFEROL (VITAMIN D3) 5,000 UNIT TABLET PO SCH (10:26)
[2022-11-01] MEDS: CITALOPRAM HYDROBROMIDE 20 MG TABLET PO SCH (10:27)
[2022-11-01] MEDS: D5/0.45 NS 1,000 ML IV SCH (16:26)
[2022-11-01] MEDS: GOLYTELY / COLYTE SOLUTION 4 LITERS PO SCH (18:46)
[2022-11-02 01:06] VITALS: BP_SYST 145; PULSE 64; RESP 17; TEMP 97.4; O2SAT 99
[2022-11-02 05:50] LABS: BASOPHILS % (AUTO) 0.6 % (0.0-2.0); EOSINOPHILS # (AUTO) 0.2 K/uL (0.0-0.4); EOSINOPHILS % (AUTO) 3.8 % (0.0-4.0); HEMATOCRIT 34.4 % (36-48); HEMOGLOBIN 10.9 g/dL (12.0-16.0); LYMPHOCYTES # (AUTO) 1.3 K/uL (1.0-5.5); LYMPHOCYTES % (AUTO) 23.8 % (20.5-51.5); MEAN CORPUSCULAR HEMOGLOBIN 28 pg (27-31); MEAN CORPUSCULAR HGB CONC 32 % (32-36); MEAN CORPUSCULAR VOLUME 89 fL (79.0-98.0); MONOCYTES # (AUTO) 0.8 K/uL (0.0-1.0); MONOCYTES % (AUTO) 13.6 % (1.7-9.3); NEUTROPHILS # (AUTO) 3.3 K/uL (1.8-7.7); NEUTROPHILS % (AUTO) 58.2 % (40.0-70.0); PLATELET COUNT (AUTO) 138 K/uL (130-430); RED BLOOD CELL COUNT(AUTO) 3.87 MIL/uL (4.2-6.2); RED CELL DISTRIBUTION WIDTH 16.1 % (9.0-15.0); WHITE BLOOD COUNT (AUTO) 5.6 K/uL (4.8-10.8)
[2022-11-02] MEDS: CYCLOBENZAPRINE HCL 10 MG TABLET (FLEXERIL) PO SCH ×3 (05:55→21:38)
[2022-11-02 06:06] LABS: CALCIUM 8.5 mg/dL (8.4-11.0); CREATININE 0.58 mg/dL (0.55-1.30); POTASSIUM 3.7 mmol/L (3.5-5.1)
[2022-11-02 08:00] VITALS: BP_SYST 113; PULSE 69; RESP 18; TEMP 97.9; O2SAT 95
[2022-11-02] MEDS: LACTULOSE 20 GM/30 ML UDC PO SCH ×2 (10:07→21:37)
[2022-11-02] MEDS: DOCUSATE SODIUM 100 MG CAPSULE PO SCH ×2 (10:07→21:37)
[2022-11-02] MEDS: PANTOPRAZOLE SODIUM 40 MG/VIAL (PROTONIX) IVP SCH (10:07)
[2022-11-02] MEDS: CHOLECALCIFEROL (VITAMIN D3) 5,000 UNIT TABLET PO SCH (10:07)
[2022-11-02] MEDS: CITALOPRAM HYDROBROMIDE 20 MG TABLET PO SCH (10:07)
[2022-11-02] MEDS: LACOSAMIDE 100 MG TABLET PO SCH ×2 (10:08→21:38)
[2022-11-02] MEDS: MULTIVITAMINS TAB 1 TABLET PO SCH (10:08)
[2022-11-02] MEDS: D5/0.45 NS 1,000 ML IV SCH ×2 (10:09→16:22)
[2022-11-02 12:15] VITALS: BP_SYST 160; PULSE 66; RESP 18; TEMP 96.9; O2SAT 96
[2022-11-02 16:12] VITALS: BP_SYST 147; PULSE 67; RESP 16; TEMP 97.2; O2SAT 100
[2022-11-02] MEDS: GOLYTELY / COLYTE SOLUTION 4 LITERS PO SCH (16:22)
[2022-11-02 19:00] VITALS: BP_SYST 145; PULSE 73; RESP 16; TEMP 98.1; O2SAT 96; O2SAT 98
[2022-11-03] MEDS ORDERED: cefTRIAXone 1 GM VIAL ONE (01:14)
[2022-11-03 01:22] VITALS: BP_SYST 140; PULSE 80; RESP 18; TEMP 97.6; O2SAT 97
[2022-11-03] MEDS: cefTRIAXone 1 GM in D5W 50 ML IV SCH ×2 (03:32→23:34)
[2022-11-03] MEDS: CYCLOBENZAPRINE HCL 10 MG TABLET (FLEXERIL) PO SCH ×3 (05:34→21:05)
[2022-11-03 08:00] VITALS: BP_SYST 117; PULSE 72; RESP 18; TEMP 98.7; O2SAT 96; O2SAT 98
[2022-11-03] MEDS: LACTULOSE 20 GM/30 ML UDC PO SCH ×2 (09:00→21:05)
[2022-11-03] MEDS: CITALOPRAM HYDROBROMIDE 20 MG TABLET PO SCH (09:00)
[2022-11-03] MEDS: LACOSAMIDE 100 MG TABLET PO SCH ×2 (09:00→21:08)
[2022-11-03] MEDS: MULTIVITAMINS TAB 1 TABLET PO SCH (09:00)
[2022-11-03] MEDS: CHOLECALCIFEROL (VITAMIN D3) 5,000 UNIT TABLET PO SCH (09:00)
[2022-11-03] MEDS: DOCUSATE SODIUM 100 MG CAPSULE PO SCH ×2 (09:00→21:05)
[2022-11-03] MEDS: HYDROcodone/ACETAMIN 10-325 MG TAB PO PRN ×2 (10:45→21:07)
[2022-11-03] MEDS: PANTOPRAZOLE SODIUM 40 MG/VIAL (PROTONIX) IVP SCH (11:29)
[2022-11-03 11:30] VITALS: BP_SYST 123; PULSE 75; RESP 17; TEMP 98.4; O2SAT 97
[2022-11-03 16:58] VITALS: BP_SYST 131; PULSE 74; RESP 17; TEMP 98; O2SAT 96
[2022-11-03 20:00] VITALS: BP_SYST 135; PULSE 77; RESP 18; TEMP 98.1; O2SAT 97
[2022-11-04 01:10] VITALS: BP_SYST 91; PULSE 72; RESP 17; TEMP 97.4; O2SAT 100
[2022-11-04 05:39] LABS: BASOPHILS # (AUTO) 0.1 K/uL (0.0-0.2); BASOPHILS % (AUTO) 0.7 % (0.0-2.0); EOSINOPHILS # (AUTO) 0.2 K/uL (0.0-0.4); EOSINOPHILS % (AUTO) 3.4 % (0.0-4.0); HEMATOCRIT 33.8 % (36-48); HEMOGLOBIN 10.7 g/dL (12.0-16.0); LYMPHOCYTES # (AUTO) 1.6 K/uL (1.0-5.5); LYMPHOCYTES % (AUTO) 21.5 % (20.5-51.5); MEAN CORPUSCULAR HEMOGLOBIN 28 pg (27-31); MEAN CORPUSCULAR HGB CONC 32 % (32-36); MEAN CORPUSCULAR VOLUME 89 fL (79.0-98.0); MONOCYTES % (AUTO) 13.4 % (1.7-9.3); NEUTROPHILS # (AUTO) 4.4 K/uL (1.8-7.7); PLATELET COUNT (AUTO) 134 K/uL (130-430); RED CELL DISTRIBUTION WIDTH 16.5 % (9.0-15.0); WHITE BLOOD COUNT (AUTO) 7.3 K/uL (4.8-10.8)
[2022-11-04] MEDS: CYCLOBENZAPRINE HCL 10 MG TABLET (FLEXERIL) PO SCH ×3 (06:09→21:37)
[2022-11-04 06:12] LABS: CALCIUM 8.3 mg/dL (8.4-11.0); CREATININE 0.63 mg/dL (0.55-1.30); POTASSIUM 3.3 mmol/L (3.5-5.1)
[2022-11-04] MEDS: LACTULOSE 20 GM/30 ML UDC PO SCH ×2 (09:41→21:35)
[2022-11-04] MEDS: D5/0.45 NS 1,000 ML IV SCH ×2 (09:41→21:37)
[2022-11-04] MEDS: CITALOPRAM HYDROBROMIDE 20 MG TABLET PO SCH (09:42)
[2022-11-04] MEDS: DOCUSATE SODIUM 100 MG CAPSULE PO SCH ×2 (09:42→21:37)
[2022-11-04] MEDS: PANTOPRAZOLE SODIUM 40 MG/VIAL (PROTONIX) IVP SCH (09:42)
[2022-11-04] MEDS: MULTIVITAMINS TAB 1 TABLET PO SCH (09:43)
[2022-11-04] MEDS: CHOLECALCIFEROL (VITAMIN D3) 5,000 UNIT TABLET PO SCH (09:43)
[2022-11-04] MEDS: LACOSAMIDE 100 MG TABLET PO SCH ×2 (09:44→21:37)
[2022-11-04 11:30] VITALS: BP_SYST 127; PULSE 74; RESP 17; TEMP 97.6; O2SAT 96
[2022-11-04] MEDS: metroNIDAZOLE 500 MG TABLET PO SCH ×2 (14:53→21:36)
[2022-11-04] MEDS: HYDROcodone/ACETAMIN 10-325 MG TAB PO PRN (15:58)
[2022-11-04 17:30] VITALS: BP_SYST 128; PULSE 69; RESP 18; TEMP 98.1; O2SAT 99
[2022-11-04] MEDS ORDERED: GOLYTELY / COLYTE SOLUTION 4 LITERS PO ONE (18:30)
[2022-11-04 20:19] VITALS: BP_SYST 125; PULSE 77; RESP 18; TEMP 97.9; O2SAT 97
[2022-11-04] MEDS ORDERED: metroNIDAZOLE 500 MG TABLET ONE (21:22)
[2022-11-04] MEDS: cefTRIAXone 1 GM in D5W 50 ML IV SCH (23:17)
[2022-11-05 01:10] VITALS: BP_SYST 131; PULSE 77; RESP 17; TEMP 96.6; O2SAT 98
[2022-11-05 05:18] LABS: BASOPHILS % (AUTO) 0.7 % (0.0-2.0); EOSINOPHILS # (AUTO) 0.2 K/uL (0.0-0.4); EOSINOPHILS % (AUTO) 3.1 % (0.0-4.0); HEMATOCRIT 32.6 % (36-48); HEMOGLOBIN 10.4 g/dL (12.0-16.0); LYMPHOCYTES % (AUTO) 15.1 % (20.5-51.5); MEAN CORPUSCULAR HEMOGLOBIN 28 pg (27-31); MEAN CORPUSCULAR HGB CONC 32 % (32-36); MEAN CORPUSCULAR VOLUME 89 fL (79.0-98.0); MONOCYTES # (AUTO) 0.9 K/uL (0.0-1.0); MONOCYTES % (AUTO) 12.6 % (1.7-9.3); NEUTROPHILS # (AUTO) 4.6 K/uL (1.8-7.7); NEUTROPHILS % (AUTO) 68.5 % (40.0-70.0); PLATELET COUNT (AUTO) 125 K/uL (130-430); RED BLOOD CELL COUNT(AUTO) 3.66 MIL/uL (4.2-6.2); RED CELL DISTRIBUTION WIDTH 16.4 % (9.0-15.0); WHITE BLOOD COUNT (AUTO) 6.7 K/uL (4.8-10.8)
[2022-11-05] MEDS: CYCLOBENZAPRINE HCL 10 MG TABLET (FLEXERIL) PO SCH ×3 (05:25→22:19)
[2022-11-05 05:37] LABS: CALCIUM 8.4 mg/dL (8.4-11.0); CREATININE 0.65 mg/dL (0.55-1.30); POTASSIUM 3.5 mmol/L (3.5-5.1)
[2022-11-05 07:00] VITALS: O2SAT 95
[2022-11-05 09:00] VITALS: BP_SYST 122; PULSE 72; RESP 16; TEMP 97.8; O2SAT 95
[2022-11-05] MEDS: LACTULOSE 20 GM/30 ML UDC PO SCH ×2 (09:00→21:23)
[2022-11-05] MEDS: DOCUSATE SODIUM 100 MG CAPSULE PO SCH ×2 (09:00→21:24)
[2022-11-05] MEDS: LACOSAMIDE 100 MG TABLET PO SCH ×2 (09:00→21:25)
[2022-11-05] MEDS: CITALOPRAM HYDROBROMIDE 20 MG TABLET PO SCH (09:00)
[2022-11-05] MEDS: CHOLECALCIFEROL (VITAMIN D3) 5,000 UNIT TABLET PO SCH (09:00)
[2022-11-05] MEDS: PANTOPRAZOLE SODIUM 40 MG/VIAL (PROTONIX) IVP SCH (09:01)
[2022-11-05] MEDS: MULTIVITAMINS TAB 1 TABLET PO SCH (09:54)
[2022-11-05 12:00] VITALS: BP_SYST 129; PULSE 72; RESP 18; TEMP 97.2; O2SAT 97
[2022-11-05] MEDS ORDERED: SUGAMMADEX SODIUM 200 MG/2 ML VIAL IV ONE (12:55)
[2022-11-05] MEDS ORDERED: LR 1,000 ML IV.SOLN IV ONE (12:55)
[2022-11-05] MEDS ORDERED: DEXAMETHASONE SOD PHOSPHATE 4 MG/ML VIAL ONE (12:55)
[2022-11-05] MEDS ORDERED: LIDOCAINE 2%, 20 ML MDV ONE (12:55)
[2022-11-05] MEDS ORDERED: ROCURONIUM BROMIDE 10 MG/ML (ZEMURON) ONE (12:55)
[2022-11-05] MEDS ORDERED: PROPOFOL 200MG/ 20ML VIAL (DIPRIVAN) IV ONE (12:55)
[2022-11-05] MEDS ORDERED: KETOROLAC TROMETHAMINE 30 MG VIAL ONE (12:55)
[2022-11-05] MEDS ORDERED: MIDAZOLAM HCL 2 MG/2 ML VIAL (VERSED) ONE (12:55)
[2022-11-05] MEDS ORDERED: ONDANSETRON HCL 4 MG/2 ML VIAL ONE (12:55)
[2022-11-05] MEDS ORDERED: fentaNYL CITRATE/PF 100 MCG/2 ML AMP ONE (12:55)
[2022-11-05] MEDS ORDERED: DESFLURANE 15 MIN GAS INH ONE (12:55)
[2022-11-05] MEDS ORDERED: NS IRRIG SOLN 1000 ML IR ONE (12:55)
[2022-11-05] MEDS ORDERED: LIDOCAINE/EPI 1% 1:100000 20 ML VIAL ONE (12:55)
[2022-11-05] MEDS ORDERED: METOCLOPRAMIDE HCL 10 MG/2 ML VIAL IVP PRN (14:00)
[2022-11-05] MEDS ORDERED: MEPERIDINE HCL/PF 25 MG/ML DISP.SYRIN IVP PRN (14:00)
[2022-11-05] MEDS: LR 1,000 ML IV SCH ×2 (14:00→21:47)
[2022-11-05] MEDS ORDERED: ACETAMINOPHEN I.V. 1000 MG 100 ML IV ONE (14:00)
[2022-11-05] MEDS ORDERED: HYDROmorphone 1 MG/ML INJ. CARTRIDGE IVP PRN ×2 (14:00)
[2022-11-05] MEDS: NACL 0.9% 1,000 ML IV SCH (14:45)
[2022-11-05] MEDS ORDERED: KETOROLAC TROMETHAMINE 15 MG VIAL IVP PRN (14:45)
[2022-11-05] MEDS ORDERED: NALOXONE HCL 0.4 MG/ML AMP (NARCAN) IVP PRN (14:45)
[2022-11-05 16:34] VITALS: BP_SYST 130; PULSE 74; RESP 17; TEMP 97; O2SAT 98
[2022-11-05] MEDS: CEFAZOLIN 1 GM IVPB PREMIX 50 ML IV SCH (16:43)
[2022-11-05] MEDS: metroNIDAZOLE 500 mg/NS 100 ML IV SCH (17:26)
[2022-11-05 20:00] VITALS: BP_SYST 151; PULSE 74; RESP 18; TEMP 97.6; O2SAT 95; O2SAT 97
[2022-11-05] MEDS: HYDROmorphone 1 MG/ML INJ. CARTRIDGE IVP PRN (21:17)
[2022-11-06] VITALS: BP_SYST 107; PULSE 90; RESP 18; TEMP 97.4; O2SAT 93
[2022-11-06] MEDS: CEFAZOLIN 1 GM IVPB PREMIX 50 ML IV SCH (00:04)
[2022-11-06] MEDS: NACL 0.9% 1,000 ML IV SCH ×3 (00:45→20:45)
[2022-11-06] MEDS: metroNIDAZOLE 500 mg/NS 100 ML IV SCH (01:03)
[2022-11-06] MEDS: HYDROmorphone 1 MG/ML INJ. CARTRIDGE IVP PRN (01:05)
[2022-11-06] MEDS: CYCLOBENZAPRINE HCL 10 MG TABLET (FLEXERIL) PO SCH ×3 (05:22→22:35)
[2022-11-06 06:55] LABS: HEMATOCRIT 31.1 % (36-48); HEMOGLOBIN 9.8 g/dL (12.0-16.0); MEAN CORPUSCULAR HEMOGLOBIN 28 pg (27-31); MEAN CORPUSCULAR HGB CONC 32 % (32-36); MEAN CORPUSCULAR VOLUME 89 fL (79.0-98.0); PLATELET COUNT (AUTO) 139 K/uL (130-430); RED CELL DISTRIBUTION WIDTH 16.6 % (9.0-15.0); WHITE BLOOD COUNT (AUTO) 15.1 K/uL (4.8-10.8)
[2022-11-06 07:00] VITALS: BP_SYST 122; PULSE 89; RESP 16; TEMP 98.7; O2SAT 97
[2022-11-06 07:29] LABS: CALCIUM 8.3 mg/dL (8.4-11.0); CREATININE 0.94 mg/dL (0.55-1.30); POTASSIUM 3.7 mmol/L (3.5-5.1); TOTAL BILIRUBIN 0.4 mg/dL (0.0-1.0); TOTAL PROTEIN, SERUM 6.3 g/dL (6.4-8.3)
[2022-11-06] MEDS: PANTOPRAZOLE SODIUM 40 MG/VIAL (PROTONIX) IVP SCH (08:47)
[2022-11-06 09:00] VITALS: BP_SYST 122; PULSE 88; RESP 16; TEMP 98.8; O2SAT 98
[2022-11-06] MEDS: CHOLECALCIFEROL (VITAMIN D3) 5,000 UNIT TABLET PO SCH (09:28)
[2022-11-06] MEDS: LACTULOSE 20 GM/30 ML UDC PO SCH ×2 (09:28→21:00)
[2022-11-06] MEDS: MULTIVITAMINS TAB 1 TABLET PO SCH (09:28)
[2022-11-06] MEDS: DOCUSATE SODIUM 100 MG CAPSULE PO SCH ×2 (09:28→22:35)
[2022-11-06] MEDS: CITALOPRAM HYDROBROMIDE 20 MG TABLET PO SCH (09:28)
[2022-11-06] MEDS: LACOSAMIDE 100 MG TABLET PO SCH ×2 (09:30→21:00)
[2022-11-06] MEDS: LR 1,000 ML IV SCH (09:31)
[2022-11-06] MEDS: HYDROcodone/ACETAMIN 5-325 MG TAB (NORCO/ VICODIN) PO PRN ×2 (09:36→16:00)
[2022-11-06 11:24] LABS: ANISOCYTOSIS 1+; BAND % (MANUAL) 6 % (0-6); BASOPHILS % (MANUAL) 0 % (0-2); EOSINOPHILS % (MANUAL) 0 % (0-7); LYMPHOCYTES % (MANUAL) 8 % (20-46); MONOCYTES % (MANUAL) 7 % (0-11); PLATELET ESTIMATE ADEQUATE (ADEQUATE)
[2022-11-06 20:00] VITALS: BP_SYST 154; PULSE 92; RESP 16; TEMP 99.6; O2SAT 98
[2022-11-07 00:43] VITALS: BP_SYST 142; PULSE 105; RESP 20; TEMP 101.7; O2SAT 93
[2022-11-07] MEDS: CYCLOBENZAPRINE HCL 10 MG TABLET (FLEXERIL) PO SCH ×2 (05:24→14:07)
[2022-11-07 06:56] LABS: BASOPHILS % (AUTO) 0.3 % (0.0-2.0); EOSINOPHILS % (AUTO) 0.2 % (0.0-4.0); HEMATOCRIT 30.9 % (36-48); HEMOGLOBIN 9.8 g/dL (12.0-16.0); LYMPHOCYTES # (AUTO) 1.3 K/uL (1.0-5.5); LYMPHOCYTES % (AUTO) 10.6 % (20.5-51.5); MEAN CORPUSCULAR HEMOGLOBIN 28 pg (27-31); MEAN CORPUSCULAR HGB CONC 32 % (32-36); MEAN CORPUSCULAR VOLUME 89 fL (79.0-98.0); MONOCYTES # (AUTO) 1.3 K/uL (0.0-1.0); MONOCYTES % (AUTO) 10.5 % (1.7-9.3); NEUTROPHILS # (AUTO) 9.8 K/uL (1.8-7.7); NEUTROPHILS % (AUTO) 78.4 % (40.0-70.0); PLATELET COUNT (AUTO) 125 K/uL (130-430); RED BLOOD CELL COUNT(AUTO) 3.48 MIL/uL (4.2-6.2); WHITE BLOOD COUNT (AUTO) 12.5 K/uL (4.8-10.8)
[2022-11-07 07:40] LABS: CALCIUM 8.5 mg/dL (8.4-11.0); CREATININE 0.65 mg/dL (0.55-1.30); POTASSIUM 3.2 mmol/L (3.5-5.1)
[2022-11-07 08:00] VITALS: BP_SYST 153; PULSE 95; RESP 18; TEMP 98.2; TEMP 99.2; O2SAT 96; O2SAT 98
[2022-11-07] MEDS: HYDROcodone/ACETAMIN 5-325 MG TAB (NORCO/ VICODIN) PO PRN (09:49)
[2022-11-07] MEDS: CHOLECALCIFEROL (VITAMIN D3) 5,000 UNIT TABLET PO SCH (09:53)
[2022-11-07] MEDS: DOCUSATE SODIUM 100 MG CAPSULE PO SCH (09:53)
[2022-11-07] MEDS: MULTIVITAMINS TAB 1 TABLET PO SCH (09:53)
[2022-11-07] MEDS: LACTULOSE 20 GM/30 ML UDC PO SCH (09:54)
[2022-11-07] MEDS: CITALOPRAM HYDROBROMIDE 20 MG TABLET PO SCH (09:54)
[2022-11-07] MEDS: LACOSAMIDE 100 MG TABLET PO SCH (10:14)
[2022-11-07 12:00] VITALS: BP_SYST 149; PULSE 99; RESP 18; TEMP 99.8; O2SAT 99
[2022-11-07 16:00] VITALS: BP_SYST 150; PULSE 96; RESP 17; TEMP 98.6; O2SAT 97
[2022-11-07 17:27] VITALS: BP_SYST 150; PULSE 96; RESP 18; TEMP 98.6; O2SAT 97
== END 2022-11-07 18:30 | DRG 353 ==
LOC: SED 12:05 → SMU 16:06 → STU 10-31 15:34 → SMU 11-01 10:22
PROVIDERS: ADMIT Internal Medicine; ATTEND Internal Medicine
PROC: 3E02340 Introduction of Influenza Vaccine into Muscle, Percutaneous Approach (ICD-10-PCS; 2022-10-25)
PROC: 0WUF0KZ Supplement Abdominal Wall with Nonautologous Tissue Substitute, Open Approach (ICD-10-PCS; principal; 2022-11-05 13:33)
DX: K43.3 Parastomal hernia with obstruction, without gangrene (principal); E43 Unspecified severe protein-calorie malnutrition; N13.6 Pyonephrosis; K43.0 Incisional hernia with obstruction, without gangrene; E11.9 Type 2 diabetes mellitus without complications; F32.A Depression, unspecified; K21.9 Gastro-esophageal reflux disease without esophagitis; D69.6 Thrombocytopenia, unspecified; N31.9 Neuromuscular dysfunction of bladder, unspecified; Z86.73 Personal history of transient ischemic attack (TIA), and cerebral infarction without residual deficits; Z79.891 Long term (current) use of opiate analgesic; Z79.899 Other long term (current) drug therapy; Z93.3 Colostomy status; Z68.28 Body mass index [BMI] 28.0-28.9, adult; Z23 Encounter for immunization
CPT/HCPCS: 36415; 71045; 76376; 80048; 80053; 81000; 81003; 82962; 83690; 83735; 85007; 85025; 85027; 85610-TC; 85730-TC; 86886; 86900; 86901; 87081; 87086; 93005; 93306; 96361; 96374; 96375; 99285; A4371; A5061; C9113; G0378; J0131; J0690; J0696; J1100; J1170; J1885; J2001; J2270; J2405; J2704; J3010; J3465; J3490; J7030; J7060; J7120; Q9964; Q9967

== ENCOUNTER 2022-12-12 16:06 | Inpatient (IN) | payer OTHER, MEDICAID ==
[~2022-12-12] VITALS: Ht 154.9 cm; Wt 64.4 kg
[~2022-12-12 16:06] MED LIST changes: -ERTA1VIA3 INJ; -RIFA550T5 PO
[2022-12-12 16:41] VITALS: BP_SYST 110; PULSE 90; RESP 18; TEMP 98.3; O2SAT 98
[2022-12-12 17:11] LABS: BASOPHILS % (AUTO) 0.3 % (0.0-2.0); EOSINOPHILS # (AUTO) 0.2 K/uL (0.0-0.4); EOSINOPHILS % (AUTO) 2.1 % (0.0-4.0); HEMATOCRIT 34.4 % (36-48); HEMOGLOBIN 10.6 g/dL (12.0-16.0); LYMPHOCYTES % (AUTO) 12.9 % (20.5-51.5); MEAN CORPUSCULAR HEMOGLOBIN 27 pg (27-31); MEAN CORPUSCULAR HGB CONC 31 % (32-36); MEAN CORPUSCULAR VOLUME 89 fL (79.0-98.0); MONOCYTES # (AUTO) 1.1 K/uL (0.0-1.0); MONOCYTES % (AUTO) 13.6 % (1.7-9.3); NEUTROPHILS # (AUTO) 5.8 K/uL (1.8-7.7); NEUTROPHILS % (AUTO) 71.1 % (40.0-70.0); PLATELET COUNT (AUTO) 158 K/uL (130-430); RED BLOOD CELL COUNT(AUTO) 3.87 MIL/uL (4.2-6.2); RED CELL DISTRIBUTION WIDTH 16.8 % (9.0-15.0); WHITE BLOOD COUNT (AUTO) 8.2 K/uL (4.8-10.8)
[2022-12-12 17:21] LABS: CALCIUM 9.9 mg/dL (8.4-11.0); CREATININE 0.73 mg/dL (0.55-1.30); POTASSIUM 4.7 mmol/L (3.5-5.1)
[2022-12-12 17:26] LABS: ALBUMIN 3.2 g/dL (3.4-4.8); TOTAL BILIRUBIN 0.3 mg/dL (0.0-1.0); TOTAL PROTEIN, SERUM 7.5 g/dL (6.4-8.3)
[2022-12-12] MEDS: D5NS 1,000 ML IV SCH (19:57)
[2022-12-12] MEDS ORDERED: HYDR-3917 PO (19:59)
[2022-12-12] MEDS ORDERED: cefTRIAXone 1 GM IVPB PREMIX 50 ML IV ONE (20:15)
[2022-12-12 20:49] VITALS: BP_SYST 129; PULSE 94; RESP 16; TEMP 99.2
[2022-12-12 21:07] VITALS: BP_SYST 129; PULSE 94; RESP 16; TEMP 99.2
[2022-12-13 00:05] VITALS: BP_SYST 115; PULSE 97; RESP 16; TEMP 99.1; O2SAT 98
[2022-12-13] MEDS: MORPHINE 4 MG INJ. 4 MG/ML VIAL IVP PRN ×2 (01:27→09:00)
[2022-12-13 06:06] LABS: BASOPHILS % (AUTO) 0.3 % (0.0-2.0); EOSINOPHILS # (AUTO) 0.1 K/uL (0.0-0.4); EOSINOPHILS % (AUTO) 1.6 % (0.0-4.0); HEMATOCRIT 32.4 % (36-48); HEMOGLOBIN 10.1 g/dL (12.0-16.0); LYMPHOCYTES # (AUTO) 1.3 K/uL (1.0-5.5); LYMPHOCYTES % (AUTO) 14.6 % (20.5-51.5); MEAN CORPUSCULAR HEMOGLOBIN 28 pg (27-31); MEAN CORPUSCULAR HGB CONC 31 % (32-36); MEAN CORPUSCULAR VOLUME 88 fL (79.0-98.0); MONOCYTES # (AUTO) 1.3 K/uL (0.0-1.0); NEUTROPHILS % (AUTO) 68.5 % (40.0-70.0); PLATELET COUNT (AUTO) 153 K/uL (130-430); RED BLOOD CELL COUNT(AUTO) 3.68 MIL/uL (4.2-6.2); RED CELL DISTRIBUTION WIDTH 16.6 % (9.0-15.0); WHITE BLOOD COUNT (AUTO) 8.8 K/uL (4.8-10.8)
[2022-12-13 06:08] LABS: CALCIUM 9.3 mg/dL (8.4-11.0); CREATININE 0.59 mg/dL (0.55-1.30); POTASSIUM 3.8 mmol/L (3.5-5.1)
[2022-12-13 06:13] LABS: ALBUMIN 3.1 g/dL (3.4-4.8); TOTAL BILIRUBIN 0.3 mg/dL (0.0-1.0); TOTAL PROTEIN, SERUM 6.9 g/dL (6.4-8.3)
[2022-12-13 07:35] VITALS: BP_SYST 120; PULSE 89; RESP 20; TEMP 98.4; O2SAT 96
[2022-12-13] MEDS ORDERED: ONDANSETRON 4 MG ODT TAB TL PRN (11:00)
[2022-12-13 11:19] VITALS: O2SAT 96
[2022-12-13 12:00] VITALS: BP_SYST 112; PULSE 95; RESP 16; TEMP 99.5; O2SAT 94
[2022-12-13] MEDS ORDERED: LORazepam 2 MG/ML VIAL IVP PRN (12:00)
[2022-12-13] MEDS: SIMETHICONE 80 MG TAB.CHEW PO SCH ×2 (14:25→21:16)
[2022-12-13] MEDS: D5NS 1,000 ML IV SCH (14:25)
[2022-12-13] MEDS: CYCLOBENZAPRINE HCL 10 MG TABLET (FLEXERIL) PO SCH ×2 (14:25→21:16)
[2022-12-13 16:00] VITALS: BP_SYST 118; PULSE 92; RESP 17; TEMP 99.3; O2SAT 92
[2022-12-13 20:00] VITALS: BP_SYST 114; PULSE 89; RESP 17; TEMP 98.8; O2SAT 91
[2022-12-13] MEDS: LACOSAMIDE 100 MG TABLET PO SCH (21:15)
[2022-12-13] MEDS: DOCUSATE SODIUM 100 MG CAPSULE PO SCH (21:15)
[2022-12-13] MEDS: LACTULOSE 20 GM/30 ML UDC PO SCH (21:15)
[2022-12-13] MEDS: cefTRIAXone 1 GM in D5W 50 ML IV SCH (21:17)
[2022-12-14] VITALS: BP_SYST 116; PULSE 85; RESP 16; TEMP 98.2; O2SAT 93
[2022-12-14 06:25] LABS: BASOPHILS % (AUTO) 0.5 % (0.0-2.0); EOSINOPHILS # (AUTO) 0.2 K/uL (0.0-0.4); EOSINOPHILS % (AUTO) 3.1 % (0.0-4.0); HEMATOCRIT 34.1 % (36-48); HEMOGLOBIN 10.7 g/dL (12.0-16.0); LYMPHOCYTES # (AUTO) 1.1 K/uL (1.0-5.5); LYMPHOCYTES % (AUTO) 15.9 % (20.5-51.5); MEAN CORPUSCULAR HEMOGLOBIN 28 pg (27-31); MEAN CORPUSCULAR HGB CONC 31 % (32-36); MEAN CORPUSCULAR VOLUME 88 fL (79.0-98.0); MONOCYTES # (AUTO) 1.1 K/uL (0.0-1.0); MONOCYTES % (AUTO) 15.6 % (1.7-9.3); NEUTROPHILS # (AUTO) 4.6 K/uL (1.8-7.7); NEUTROPHILS % (AUTO) 64.9 % (40.0-70.0); PLATELET COUNT (AUTO) 156 K/uL (130-430); RED BLOOD CELL COUNT(AUTO) 3.88 MIL/uL (4.2-6.2); RED CELL DISTRIBUTION WIDTH 16.7 % (9.0-15.0); WHITE BLOOD COUNT (AUTO) 7.1 K/uL (4.8-10.8)
[2022-12-14 06:40] LABS: CALCIUM 8.9 mg/dL (8.4-11.0); CREATININE 0.47 mg/dL (0.55-1.30); POTASSIUM 3.5 mmol/L (3.5-5.1)
[2022-12-14] MEDS: SIMETHICONE 80 MG TAB.CHEW PO SCH ×3 (06:46→21:34)
[2022-12-14] MEDS: CYCLOBENZAPRINE HCL 10 MG TABLET (FLEXERIL) PO SCH ×3 (06:46→21:34)
[2022-12-14 07:35] VITALS: BP_SYST 113; PULSE 76; RESP 16; TEMP 97.9; O2SAT 95
[2022-12-14] MEDS: LACOSAMIDE 100 MG TABLET PO SCH ×2 (08:18→20:27)
[2022-12-14] MEDS: PANTOPRAZOLE SODIUM 40 MG TAB PO SCH (08:18)
[2022-12-14] MEDS: CITALOPRAM HYDROBROMIDE 20 MG TABLET PO SCH (08:18)
[2022-12-14] MEDS: MULTIVITAMINS TAB 1 TABLET PO SCH (08:18)
[2022-12-14] MEDS: DOCUSATE SODIUM 100 MG CAPSULE PO SCH ×2 (08:18→20:17)
[2022-12-14] MEDS: LACTULOSE 20 GM/30 ML UDC PO SCH ×2 (08:18→20:17)
[2022-12-14] MEDS: HYDROcodone/ACETAMIN 5-325 MG TAB (NORCO/ VICODIN) PO PRN ×2 (08:19→20:18)
[2022-12-14] MEDS ORDERED: ESCITALOPRAM OXALATE 10 MG TABLET PO SCH (09:00)
[2022-12-14 11:00] VITALS: BP_SYST 105; PULSE 81; RESP 16; TEMP 98.2; O2SAT 98
[2022-12-14] MEDS: D5NS 1,000 ML IV SCH (11:46)
[2022-12-14 12:42] VITALS: O2SAT 95
[2022-12-14 16:00] VITALS: BP_SYST 116; PULSE 87; RESP 20; TEMP 98.1; O2SAT 97
[2022-12-14] MEDS: cefTRIAXone 1 GM in D5W 50 ML IV SCH (20:20)
[2022-12-15 00:54] VITALS: BP_SYST 102; PULSE 85; RESP 17; TEMP 97.8; O2SAT 97
[2022-12-15 05:00] LABS: BASOPHILS # (AUTO) 0.1 K/uL (0.0-0.2); BASOPHILS % (AUTO) 1.2 % (0.0-2.0); EOSINOPHILS # (AUTO) 0.2 K/uL (0.0-0.4); EOSINOPHILS % (AUTO) 2.4 % (0.0-4.0); HEMATOCRIT 30.2 % (36-48); HEMOGLOBIN 9.5 g/dL (12.0-16.0); LYMPHOCYTES # (AUTO) 1.3 K/uL (1.0-5.5); LYMPHOCYTES % (AUTO) 18.5 % (20.5-51.5); MEAN CORPUSCULAR HEMOGLOBIN 27 pg (27-31); MEAN CORPUSCULAR HGB CONC 32 % (32-36); MEAN CORPUSCULAR VOLUME 87 fL (79.0-98.0); MONOCYTES # (AUTO) 0.9 K/uL (0.0-1.0); MONOCYTES % (AUTO) 12.5 % (1.7-9.3); NEUTROPHILS # (AUTO) 4.6 K/uL (1.8-7.7); NEUTROPHILS % (AUTO) 65.4 % (40.0-70.0); PLATELET COUNT (AUTO) 151 K/uL (130-430); RED BLOOD CELL COUNT(AUTO) 3.49 MIL/uL (4.2-6.2); RED CELL DISTRIBUTION WIDTH 16.4 % (9.0-15.0); WHITE BLOOD COUNT (AUTO) 7.1 K/uL (4.8-10.8)
[2022-12-15 05:42] LABS: CALCIUM 8.6 mg/dL (8.4-11.0); CREATININE 0.58 mg/dL (0.55-1.30); POTASSIUM 3.4 mmol/L (3.5-5.1)
[2022-12-15] MEDS: CYCLOBENZAPRINE HCL 10 MG TABLET (FLEXERIL) PO SCH (06:22)
[2022-12-15] MEDS: SIMETHICONE 80 MG TAB.CHEW PO SCH (06:22)
[2022-12-15] MEDS: D5NS 1,000 ML IV SCH (06:30)
[2022-12-15 08:00] VITALS: BP_SYST 114; PULSE 78; RESP 18; TEMP 97.8; O2SAT 95; O2SAT 98
[2022-12-15] MEDS: DOCUSATE SODIUM 100 MG CAPSULE PO SCH (09:53)
[2022-12-15] MEDS: PANTOPRAZOLE SODIUM 40 MG TAB PO SCH (09:53)
[2022-12-15] MEDS: CITALOPRAM HYDROBROMIDE 20 MG TABLET PO SCH (09:53)
[2022-12-15] MEDS: LACTULOSE 20 GM/30 ML UDC PO SCH (09:53)
[2022-12-15] MEDS: MULTIVITAMINS TAB 1 TABLET PO SCH (09:54)
[2022-12-15] MEDS: LACOSAMIDE 100 MG TABLET PO SCH (10:10)
[2022-12-15] MEDS: HYDROcodone/ACETAMIN 5-325 MG TAB (NORCO/ VICODIN) PO PRN (10:11)
[2022-12-15 11:28] VITALS: BP_SYST 107; PULSE 80; RESP 16; TEMP 97.2; O2SAT 93
[2022-12-15] MEDS ORDERED: MUPIROCIN 2% TOPICAL OINTMENT 22 GM NS ONE (13:30)
[2022-12-15 14:45] VITALS: BP_SYST 109; PULSE 76; RESP 19; TEMP 97.7; O2SAT 96
[2022-12-15 15:03] VITALS: BP_SYST 109; PULSE 76; RESP 16; TEMP 97.7; O2SAT 96
[2022-12-15] MEDS ORDERED: MUPIROCIN 2% TOPICAL OINTMENT 22 GM NS SCH (21:00)
== END 2022-12-15 15:35 | DRG 920 ==
LOC: SED 16:06 → SMU 18:35
PROVIDERS: ADMIT Internal Medicine; ATTEND Internal Medicine
DX: T85.628A Displacement of other specified internal prosthetic devices, implants and grafts, initial encounter (principal); L03.90 Cellulitis, unspecified; F32.A Depression, unspecified; Y83.8 Other surgical procedures as the cause of abnormal reaction of the patient, or of later complication, without mention of misadventure at the time of the procedure; G40.909 Epilepsy, unspecified, not intractable, without status epilepticus; Z91.018 Allergy to other foods; Z79.899 Other long term (current) drug therapy; Z85.028 Personal history of other malignant neoplasm of stomach; Z85.841 Personal history of malignant neoplasm of brain; Z90.710 Acquired absence of both cervix and uterus; Z79.1 Long term (current) use of non-steroidal anti-inflammatories (NSAID); Y92.89 Other specified places as the place of occurrence of the external cause
CPT/HCPCS: 36415; 80048; 80053; 83605; 85025; 87040; 87081; 99285; J0696; J2060; J2270; J7060

== ENCOUNTER 2023-04-05 10:26 | Inpatient (IN) | payer OTHER, MEDICAID ==
[~2023-04-05] VITALS: Ht 152.4 cm; Wt 70.3 kg
[~2023-04-05 10:26] MED LIST changes: +HYDR-3917 PO; -HYDR-3927 PO
[2023-04-05 10:29] VITALS: BP_SYST 127; PULSE 82; RESP 18; TEMP 97.8; O2SAT 100
[2023-04-05 11:26] LABS: BILIRUBIN,URINE NEGATIVE (NEGATIVE); BLOOD, URINE NEGATIVE (NEGATIVE); CLARITY/URINE CLEAR (CLEAR); COLOR,URINE YELLOW (YELLOW); GLUCOSE,URINE NEGATIVE (NEGATIVE); KETONES,URINE NEGATIVE (NEGATIVE); LEUKOCYTE ESTERASE ,URINE NEGATIVE (NEGATIVE); NITRITE, URINE POSITIVE (NEGATIVE); PROTEIN URINE NEGATIVE (NEGATIVE)
[2023-04-05 11:46] LABS: RBC,URINE 0-3 /HPF (0-3); WBC,URINE 0-3 /HPF (0-3)
[2023-04-05 11:47] LABS: BACTERIA,URINE FEW /HPF (None Seen)
[2023-04-05 12:14] LABS: BASOPHILS % (AUTO) 0.5 % (0.0-2.0); EOSINOPHILS # (AUTO) 0.1 K/uL (0.0-0.4); EOSINOPHILS % (AUTO) 2.8 % (0.0-4.0); HEMOGLOBIN 10.5 g/dL (12.0-16.0); LYMPHOCYTES # (AUTO) 1.3 K/uL (1.0-5.5); LYMPHOCYTES % (AUTO) 26.5 % (20.5-51.5); MEAN CORPUSCULAR HEMOGLOBIN 27 pg (27-31); MEAN CORPUSCULAR HGB CONC 32 % (32-36); MEAN CORPUSCULAR VOLUME 83 fL (79.0-98.0); MONOCYTES # (AUTO) 0.6 K/uL (0.0-1.0); MONOCYTES % (AUTO) 11.5 % (1.7-9.3); NEUTROPHILS # (AUTO) 2.9 K/uL (1.8-7.7); NEUTROPHILS % (AUTO) 58.7 % (40.0-70.0); PLATELET COUNT (AUTO) 115 K/uL (130-430); RED BLOOD CELL COUNT(AUTO) 3.96 MIL/uL (4.2-6.2)
[2023-04-05 12:36] LABS: ANION GAP 9 (5-15); CALCIUM 9.1 mg/dL (8.4-11.0); CARBON DIOXIDE 26 mmol/L (23-29); CHLORIDE 109 mmol/L (98-107); CREATININE 0.67 mg/dL (0.55-1.30); GLUCOSE 109 mg/dL (74-106); POTASSIUM 4.8 mmol/L (3.5-5.1); SODIUM SERUM 144 mmol/L (136-145); UREA NITROGEN, BLOOD 17 mg/dL (8-21)
[2023-04-05] MEDS: cefTRIAXone 1 GM in D5W 50 ML IV ONE (12:38)
[2023-04-05] MEDS ORDERED: cefTRIAXone 1 GM VIAL ONE (12:39)
[2023-04-05 12:41] LABS: ALANINE AMINOTRANSFERASE 36 U/L (12-78); ALBUMIN 3.3 g/dL (3.4-4.8); ASPARTATE AMINOTRANSFERASE 25 U/L (10-37); BILIRUBIN,DIRECT 0.1 mg/dL (0.0-0.3); TOTAL BILIRUBIN 0.3 mg/dL (0.0-1.0); TOTAL PROTEIN, SERUM 7.1 g/dL (6.4-8.3)
[2023-04-05] MEDS: NACL 0.9% 2,000 ML IV ONE (12:45)
[2023-04-05] MEDS ORDERED: NACL 0.9% 1,000 ML IV ONE (15:00)
[2023-04-05] MEDS ORDERED: GLIP5TAB13 PO (15:39)
[2023-04-05] MEDS: NACL 0.9% 1,000 ML IV SCH (16:28)
[2023-04-05] MEDS ORDERED: INSULIN REGULAR, HUMAN 100 UNITS/ML, 3 ML VIAL (humuLIN R) SUBCUT PRN (17:00)
[2023-04-05] MEDS ORDERED: INSULIN REGULAR, HUMAN 10 UNITS/0.1 ML, 3 ML VIAL ONE (18:18)
[2023-04-05] MEDS: INSULIN REGULAR, HUMAN 100 UNITS/ML, 3 ML VIAL (humuLIN R) SUBCUT PRN (18:29)
[2023-04-05 20:20] VITALS: BP_SYST 108; PULSE 79; RESP 17; TEMP 97.9
[2023-04-06] VITALS: BP_SYST 137; PULSE 78; RESP 18; TEMP 97.8; O2SAT 99
[2023-04-06 06:25] LABS: BASOPHILS % (AUTO) 0.8 % (0.0-2.0); EOSINOPHILS # (AUTO) 0.2 K/uL (0.0-0.4); EOSINOPHILS % (AUTO) 3.5 % (0.0-4.0); HEMATOCRIT 30.6 % (36-48); HEMOGLOBIN 9.8 g/dL (12.0-16.0); LYMPHOCYTES # (AUTO) 1.1 K/uL (1.0-5.5); LYMPHOCYTES % (AUTO) 24.1 % (20.5-51.5); MEAN CORPUSCULAR HEMOGLOBIN 27 pg (27-31); MEAN CORPUSCULAR HGB CONC 32 % (32-36); MEAN CORPUSCULAR VOLUME 83 fL (79.0-98.0); MONOCYTES # (AUTO) 0.5 K/uL (0.0-1.0); MONOCYTES % (AUTO) 10.6 % (1.7-9.3); NEUTROPHILS # (AUTO) 2.8 K/uL (1.8-7.7); PLATELET COUNT (AUTO) 103 K/uL (130-430); RED BLOOD CELL COUNT(AUTO) 3.68 MIL/uL (4.2-6.2); RED CELL DISTRIBUTION WIDTH 17.6 % (9.0-15.0); WHITE BLOOD COUNT (AUTO) 4.5 K/uL (4.8-10.8)
[2023-04-06 06:48] LABS: ANION GAP 9 (5-15); CALCIUM 8.3 mg/dL (8.4-11.0); CARBON DIOXIDE 25 mmol/L (23-29); CHLORIDE 111 mmol/L (98-107); CREATININE 0.56 mg/dL (0.55-1.30); GLUCOSE 109 mg/dL (74-106); POTASSIUM 3.9 mmol/L (3.5-5.1); SODIUM SERUM 145 mmol/L (136-145); UREA NITROGEN, BLOOD 13 mg/dL (8-21)
[2023-04-06 06:50] LABS: PROTHROMBIN TIME 10.1 SECS (9.5-12.5)
[2023-04-06 06:52] LABS: ALANINE AMINOTRANSFERASE 31 U/L (12-78); ASPARTATE AMINOTRANSFERASE 22 U/L (10-37); TOTAL BILIRUBIN 0.2 mg/dL (0.0-1.0); TOTAL PROTEIN, SERUM 6.4 g/dL (6.4-8.3)
[2023-04-06 08:28] VITALS: BP_SYST 115; PULSE 78; RESP 16; O2SAT 98
[2023-04-06] MEDS ORDERED: cefTRIAXone 1 GM VIAL IM SCH (09:00)
[2023-04-06] MEDS: CEFTRIAXONE SOD 1 GM/ DEXTROSE,ISO 50 ML PREMIX IV SCH (10:28)
[2023-04-06] MEDS ORDERED: GLUCOSE (DEXTROSE) ORAL GEL -Adults PO PRN (12:30)
[2023-04-06] MEDS ORDERED: D5W 1,000 ML IV PRN (12:30)
[2023-04-06] MEDS ORDERED: DEXTROSE 50%-WATER 50 ML DISP.SYRIN IVP PRN (12:30)
[2023-04-06 12:34] VITALS: BP_SYST 142; PULSE 77; RESP 18; TEMP 99.3; O2SAT 97
[2023-04-06] MEDS: ACETAMINOPHEN 325 MG TABLET PO PRN (12:34)
[2023-04-06] MEDS ORDERED: ESCI5TAB PO (13:58)
[2023-04-06] MEDS ORDERED: GLUC1SYR SUBCUT (13:58)
[2023-04-06 16:02] VITALS: BP_SYST 138; PULSE 77; RESP 16; TEMP 98.1; O2SAT 100
[2023-04-06] MEDS: D5/0.45 NS 1,000 ML IV SCH (18:03)
[2023-04-06 20:00] VITALS: BP_SYST 135; PULSE 75; RESP 18; TEMP 98.2; O2SAT 95
[2023-04-07] VITALS: BP_SYST 123; PULSE 77; RESP 18; TEMP 97.4; O2SAT 97
[2023-04-07 08:00] VITALS: BP_SYST 121; PULSE 74; RESP 18; TEMP 97; O2SAT 100; O2SAT 98
[2023-04-07 11:30] VITALS: BP_SYST 126; PULSE 76; RESP 19; TEMP 97.6; O2SAT 96
[2023-04-07] MEDS ORDERED: HYDROcodone/ACETAMIN 5-325 MG TAB (NORCO/ VICODIN) PO PRN (13:30)
[2023-04-07] MEDS: CYCLOBENZAPRINE HCL 10 MG TABLET (FLEXERIL) PO SCH (17:25)
[2023-04-07] MEDS: SIMETHICONE 80 MG TAB.CHEW PO SCH (17:25)
[2023-04-07 17:34] VITALS: BP_SYST 148; PULSE 77; RESP 19; TEMP 97.6; O2SAT 97
[2023-04-07 20:00] VITALS: BP_SYST 131; PULSE 78; RESP 18; TEMP 97.6; O2SAT 98
[2023-04-07] MEDS ORDERED: NON-FORMULARY MEDICATION (Lactulose 20 GM) PO SCH (21:00)
[2023-04-07] MEDS: LACTULOSE 20 GM/30 ML UDC PO SCH (23:26)
[2023-04-07] MEDS: LACOSAMIDE 100 MG TABLET PO SCH (23:26)
[2023-04-07] MEDS: DOCUSATE SODIUM 100 MG CAPSULE PO SCH (23:26)
[2023-04-08] VITALS: BP_SYST 128; PULSE 77; RESP 18; TEMP 97; O2SAT 97
[2023-04-08 07:01] LABS: ANION GAP 9 (5-15); BASOPHILS % (AUTO) 0.7 % (0.0-2.0); CALCIUM 9.2 mg/dL (8.4-11.0); CARBON DIOXIDE 27 mmol/L (23-29); CHLORIDE 108 mmol/L (98-107); EOSINOPHILS # (AUTO) 0.1 K/uL (0.0-0.4); EOSINOPHILS % (AUTO) 3.1 % (0.0-4.0); GLUCOSE 130 mg/dL (74-106); HEMATOCRIT 33.7 % (36-48); HEMOGLOBIN 10.8 g/dL (12.0-16.0); LYMPHOCYTES # (AUTO) 1.2 K/uL (1.0-5.5); MEAN CORPUSCULAR HEMOGLOBIN 26 pg (27-31); MEAN CORPUSCULAR HGB CONC 32 % (32-36); MEAN CORPUSCULAR VOLUME 82 fL (79.0-98.0); MONOCYTES # (AUTO) 0.5 K/uL (0.0-1.0); MONOCYTES % (AUTO) 12.6 % (1.7-9.3); NEUTROPHILS # (AUTO) 2.4 K/uL (1.8-7.7); NEUTROPHILS % (AUTO) 55.6 % (40.0-70.0); PLATELET COUNT (AUTO) 118 K/uL (130-430); POTASSIUM 3.4 mmol/L (3.5-5.1); RED CELL DISTRIBUTION WIDTH 18.2 % (9.0-15.0); SODIUM SERUM 144 mmol/L (136-145); UREA NITROGEN, BLOOD 8 mg/dL (8-21); WHITE BLOOD COUNT (AUTO) 4.4 K/uL (4.8-10.8)
[2023-04-08 08:00] VITALS: BP_SYST 119; PULSE 78; RESP 18; TEMP 97.8; TEMP 98.3; O2SAT 96
[2023-04-08] MEDS ORDERED: ESCITALOPRAM OXALATE 10 MG TABLET PO SCH (09:00)
[2023-04-08] MEDS: PANTOPRAZOLE SODIUM 40 MG TAB PO SCH (09:20)
[2023-04-08] MEDS: MULTIVITAMINS TAB 1 TABLET PO SCH (09:21)
[2023-04-08] MEDS: CITALOPRAM HYDROBROMIDE 20 MG TABLET PO SCH (09:21)
== END 2023-04-08 18:40 | DRG 871 ==
LOC: SED 10:26 → SMU 15:13
PROVIDERS: ADMIT Internal Medicine; ATTEND Internal Medicine
DX: A41.9 Sepsis, unspecified organism (principal); G93.41 Metabolic encephalopathy; K94.01 Colostomy hemorrhage; N39.0 Urinary tract infection, site not specified; K72.90 Hepatic failure, unspecified without coma; F03.90 Unspecified dementia, unspecified severity, without behavioral disturbance, psychotic disturbance, mood disturbance, and anxiety; K21.9 Gastro-esophageal reflux disease without esophagitis; I10 Essential (primary) hypertension; D64.9 Anemia, unspecified; F32.9 Major depressive disorder, single episode, unspecified; G40.909 Epilepsy, unspecified, not intractable, without status epilepticus; I67.1 Cerebral aneurysm, nonruptured; Z88.8 Allergy status to other drugs, medicaments and biological substances; Z86.73 Personal history of transient ischemic attack (TIA), and cerebral infarction without residual deficits
CPT/HCPCS: 36415; 71045; 80048; 80053; 80076; 81000; 81001; 81015; 82948; 83605; 85025; 85610; 87040; 87081; 87086; 96365; 99291; J0696; J1815